=== PATIENT | male | born 1970 | race Caucasian/White ===

== ENCOUNTER → 2017-04-14 | Outpatient (CLI) | payer OTHER ==
--- NOTE | 2017-04-14 16:34 | XR ---
Bilateral shoulders HISTORY: Pain 3 views of both shoulders are submitted. No evident soft tissue abnormality. Alignment, joint spaces, bone mineralization are maintained. No f racture or dislocation. Lung apices are unremarkable. IMPRESSION: No significant abnormalities evident. Consider shoulder MRI as indicated.
== END | disposition home or self-care (01) ==
LOC: RADXRMAIN 16:05
PROVIDERS: ATTEND Nurse Practitioner
DX: M25.511 Pain in right shoulder (principal); M25.512 Pain in left shoulder

== ENCOUNTER 2018-09-25 10:55 | Emergency (ER) | payer OTHER ==
--- NOTE | 2018-09-25 11:21 | ED ---
General Adult HPI - General Chief complaint: Psychiatric Symptoms Stated complaint: Mental Health Time Seen by Provider: 09/25/18 11:14 Source: patient, RN notes reviewed Mode of arrival: ambulatory Limitations: no limitations - History of Present Illness Initial comments: Patient is a pleasant 48-year-old male presenting to the emergency department with concerns for depression. Patient does have a history of depression. Patient has been feeling more suicidal recently. Patient does have suicidal thoughts and plan. Patient denies homicidal thoughts. Patient denies any drug or alcohol use today however states he occasionally does use substances. No hallucinations. No new physical complaints. - Related Data Home Medications Medication Instructions Recorded Confirmed No Known Home Medications 09/25/18 09/25/18 Allergies Allergy/AdvReac Type Severity Reaction Status Date / Time No Known Allergies Allergy Verified 09/25/18 11:23 Review of Systems ROS Statement: Those systems with pertinent positive or pertinent negative responses have been documented in the HPI. ROS Other: All systems not noted in ROS Statement are negative. Constitutional: Denies: fever Eyes: Denies: eye pain ENT: Denies: ear pain Respiratory: Denies: cough Cardiovascular: Denies: chest pain Endocrine: Denies: fatigue Gastrointestinal: Denies: abdominal pain Psychiatric: Reports: depression, suicidal thoughts. Denies: auditory hallucinations, visual hallucinations, homicidal thoughts Past Medical History Past Medical History: No Reported History History of Any Multi-Drug Resistant Organisms: None Reported Past Surgical History: No Surgical Hx Reported Past Psychological History: Anxiety, Depression, PTSD Smoking Status: Current every day smoker Past Alcohol Use History: Daily Past Drug Use History: Cocaine, Marijuana General Exam Limitations: no limitations General appearance: alert, in no apparent distress Head exam: Present: atraumatic Eye exam: Present: normal appearance Neck exam: Present: normal inspection Respiratory exam: Present: normal lung sounds bilaterally Cardiovascular Exam: Present: regular rate, normal rhythm GI/Abdominal exam: Present: soft. Absent: tenderness Extremities exam: Present: normal inspection Neurological exam: Present: alert Psychiatric exam: Present: flat affect Skin exam: Present: normal color Course Vital Signs 09/25/18 10:57 Temperature 97.7 F Pulse Rate 76 Respiratory 18 Rate Blood Pressure 134/87 O2 Sat by Pulse 98 Oximetry Medical Decision Making - Medical Decision Making Patient seen by mental health services who does recommend discharge and follow- up. Patient has an appointment this week. Patient reevaluated by myself. Patient agrees to keep his appointment. Patient denies suicidal ideation and does contract for safety. - Lab Data Lab Results 09/25/18 Range/Units 11:08 Urine Opiates Screen Not Detected (NotDetected) Ur Oxycodone Screen Not Detected (NotDetected) Urine Methadone Screen Not Detected (NotDetected) Ur Propoxyphene Screen Not Detected (NotDetected) Ur Barbiturates Screen Not Detected (NotDetected) U Tricyclic Antidepress Not Detected (NotDetected) Ur Phencyclidine Scrn Not Detected (NotDetected) Ur Amphetamines Screen Not Detected (NotDetected) U Methamphetamines Scrn Not Detected (NotDetected) U Benzodiazepines Scrn Not Detected (NotDetected) Urine Cocaine Screen Detected H (NotDetected) U Marijuana (THC) Screen Not Detected (NotDetected) Disposition Clinical Impression: Depression Disposition: HOME SELF-CARE Condition: Stable Instructions (If sedation given, give patient instructions): Depression (ED) Additional Instructions: Please follow-up with [facility] this week as planned. Please follow-up with primary care physician this week. Return for thoughts of self-harm, worsening symptoms or other concerns. Is patient prescribed a controlled substance at d/c from ED?: No Referrals: Michael Leo MD [REFERRING] - 1-2 days Time of Disposition: 15:05
[2018-09-25 11:52] LABS: Cocaine Screen,Urine Detected (NotDetected); Phencyclidine Screen,Urine Not Detected (NotDetected); Urn Cannabinoid Scrn Not Detected (NotDetected)
[2018-09-25 11:53] LABS: Amphetamine Screen,Urine Not Detected (NotDetected); Barbiturate Screen,Urine Not Detected (NotDetected); Benzodiazepines Screen,Urine Not Detected (NotDetected); Methadone Screen, Urine Not Detected (NotDetected); Opiate Screen,Urine Not Detected (NotDetected); Oxycodone Screen, Urine Not Detected (NotDetected); Tricyclic Antidepressant,Urine Not Detected (NotDetected)
[2018-09-25 15:42] VITALS: BP 136/81; PULSE 78; RESP 16; TEMP 97.9
== END 2018-09-25 15:41 | disposition home or self-care (01) ==
LOC: EC 10:55
DX: F32.9 Major depressive disorder, single episode, unspecified (principal); F17.200 Nicotine dependence, unspecified, uncomplicated
CPT/HCPCS: 80306; 82075; 99285

== ENCOUNTER 2019-11-29 15:14 | Inpatient (IN) | payer MEDICAID, OTHER ==
--- NOTE | 2019-11-29 15:39 | ED ---
General Adult HPI - General Chief complaint: Psychiatric Symptoms Stated complaint: panic attack/mental health Time Seen by Provider: 11/29/19 15:27 Source: patient, RN notes reviewed, old records reviewed Mode of arrival: ambulatory Limitations: no limitations - History of Present Illness Initial comments: 49-year-old male presenting for mental health evaluation. Known history of substance abuse, and bipolar depression. Patient is having both auditory and visual hallucination. He admits to both alcohol and cocaine abuse. He's been off his medications for several months. He was urged to come to the emergency department [facility]. He is anxious, and delusional at the time my examination. - Related Data Home Medications Medication Instructions Recorded Confirmed No Known Home Medications 09/25/18 09/25/18 Allergies Allergy/AdvReac Type Severity Reaction Status Date / Time No Known Allergies Allergy Verified 11/29/19 15:17 Review of Systems ROS Statement: Those systems with pertinent positive or pertinent negative responses have been documented in the HPI. ROS Other: All systems not noted in ROS Statement are negative. Past Medical History Past Medical History: No Reported History History of Any Multi-Drug Resistant Organisms: None Reported Past Surgical History: No Surgical Hx Reported Past Psychological History: Anxiety, Depression, PTSD Smoking Status: Current every day smoker Past Alcohol Use History: Daily, Heavy Past Drug Use History: Cocaine, Marijuana General Exam Limitations: no limitations General appearance: alert, in no apparent distress, anxious Head exam: Present: atraumatic, normocephalic Eye exam: Present: normal appearance, PERRL, EOMI ENT exam: Present: normal exam Neck exam: Present: normal inspection. Absent: tenderness, meningismus Respiratory exam: Present: normal lung sounds bilaterally. Absent: respiratory distress, wheezes Cardiovascular Exam: Present: regular rate, normal rhythm GI/Abdominal exam: Present: soft. Absent: distended, tenderness, guarding Neurological exam: Present: alert Psychiatric exam: Present: agitated, anxious, suicidal ideation Skin exam: Present: warm, dry, intact. Absent: cyanosis, diaphoretic Course Vital Signs 11/29/19 15:17 Temperature 98.8 F Pulse Rate 129 H Respiratory 18 Rate Blood Pressure 130/79 O2 Sat by Pulse 98 Oximetry Medical Decision Making - Medical Decision Making 49-year-old male with delusions, paranoia, suicidal ideation. Patient medically cleared and evaluated by EPS, will be admitted to this institution for further psychiatric evaluation and treatment. I did complete a clinical certification on this patient. Disposition Clinical Impression: Acute psychosis, Suicidal ideation Disposition: ADMITTED IP TO THIS [facility] Condition: Stable Is patient prescribed a controlled substance at d/c from ED?: No Referrals: [facility] [Primary Care Provider] - 1-2 days Decision to Admit Reason: Admit from EC Decision Date: 11/29/19 Decision Time: 19:31
[2019-11-29] MEDS ORDERED: ACETAMINOPHEN TAB 325 MG TAB PO PRN (20:59)
[2019-11-29] MEDS ORDERED: MAGNESIUM HYDROXIDE 2,400 MG/10 ML CUP PO PRN (20:59)
[2019-11-29] MEDS ORDERED: LORazepam 1 MG TAB PO PRN (20:59)
[2019-11-29] MEDS ORDERED: ZIPRASIDONE 20 MG VIAL IM PRN (20:59)
[2019-11-30] MEDS: MAG HYDROX/AL HYDROX/SIMETH 30 ML CUP PO PRN (07:52)
--- NOTE | 2019-11-30 13:08 | P.HP ---
Psychiatric H&P - . H&P Date: 11/30/19 History & Physical: Allergies Allergy/AdvReac Type Severity Reaction Status Date / Time No Known Allergies Allergy Verified 11/29/19 19:45 Vital Signs Temp 98.7 F 11/29/19 20:58 Pulse 115 H 11/30/19 07:51 Resp 18 11/29/19 21:43 BP 125/73 11/30/19 07:51 Pulse Ox 98 11/29/19 21:43 Intake & Output 11/29/19 11/30/19 11/30/19 18:59 06:59 18:59 Weight 70.307 kg 68.1 kg 11/30/19 11:31 IDENTIFYING DATA: Patient is a 49-year-old male with significant history of substance abuse, bipolar disorder, and depression who was admitted involuntarily for psychosis and suicidal ideation. HPI: Patient presented to the hospital accompanied by his counselor Dk from [facility]. Patient reports that he was feeling unsafe at home. Patient endorses significant paranoia, stating that he feels like he is constantly under surveillance and that his house is bugged. He reports noting Granda flying around his home. He also believes that he has been set up by an undercover officer. He reports concern that there are cameras in his lights at home. He states that the police and his neighbors are investigating him for illegal activity due to his past criminal history and substance use. He expresses that he was yelling as loud as he can in his home to "give them something to be scared about." In regards to mood, he reports significant mood lability and fluctuation. He reports some irritability. He states that his sleep has been irregular. He reports 2-5 hours of sleep per night. He is currently not endorsing any impulsivity, grandiosity, or increased goal-directed activity. He does not report any significant symptoms of depression at this time. He is not reporting any suicidal or homicidal ideation or intention. 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 In regards to psychotic symptoms, patient endorses auditory and visual disturbances. He reports that he constantly hears a "buzzing" or "humming" coming from electronics and that electronics "bother me." He states that no one else has noticed the drones flying around his home and he describes them as being with green lights Patient admits to significant substance use. Patient reports he smokes marijuana 2-3 times per week. He reports drinking 4-6 drinks 5-7 days per week. He reports a history of alcohol withdrawal but denies any delirium tremens or seizure. He does endorse significant cocaine use. He states his last use of crack cocaine was 3 nights ago and that he has been using on and off for the past couple of weeks. PAST PSYCHIATRIC HISTORY: Patient states that he is currently open with [facility] and his counselor is Dk. He reports previous medication trials of Prozac, Zoloft, trazodone, Seroquel and is currently on Abilify and lithium prescribed by his outpatient psychiatrist Dr. Pastrana. He reports 1 previous psychiatric hospitalization in 2013 after attempting suicide. PMH:denies ALLERGIES: as per EMR CHEMICAL DEPENDENCY HISTORY: as per HPI FAMILY PSYCHIATRIC/SUBSTANCE USE HISTORY: Brothermajor depression/completed suicide SOCIAL HISTORY: Patient [place] but is supported financially by his mom and dad and is also receiving unemployment from the [employer]. He has a 31-year-old son and a 30-year-old daughter. 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 MENTAL STATUS EXAM: General Appearance: Patient appears to be stated age is alert, directable, and attempts to cooperate. Patient appears to have poor hygiene and grooming. Behavior: Patient is seated and appears to have elevated psychomotor activity and is constantly fidgeting with his glasses. Speech: Patient's speech is somewhat fast but is interruptible. Mood/Affect: Patient reports their mood is anxious/scared, affect is congruent and intense at times Suicidality/Homicidality: Patient denies having any homicidal ideation intent or plan. Denies any suicidal ideations intent or plan Perceptions: Patient reports some auditory disturbances such as "buzzing and humming" from electronics." Though content/process: Paranoia is evident. Thought process is linear and goal-directed. Memory and concentration: AOX3, grossly intact for the purposes of this session. Can spell "WORLD" backwards Judgment and insight: poor STRENGTHS/WEAKNESSES: strength is that patient is resilient. Weakness is that patient has poor judgment and is impulsive and engages in significant substance use. INTELLECT: average IMPRESSIONS: Psychosis, unspecified Depressive disorder, unspecified Cocaine use disorder Alcohol use disorder Cannabis use disorder PLAN: -Patient is admitted under involuntary status to [facility] for stabilization of psychiatric symptoms and safety. A second certification was completed and along with petition will be filed for court. -Medications : Will increase Abilify to 10 mg by mouth daily to address psychosis/mood lability. Will titrate pending patient's response to medication. Continue lithium 300 mg by mouth daily for mood stabilization. -Order lithium level, TSH with reflex T4, CMP -Ativan and Geodon PRN for agitation/aggression -CIWA protocol with Ativan PRN for ETOH withdrawal -Patient was counselled on substance abuse and desired to cut back on use -Patient was informed of the risks, benefits and side effects of the medication and patient verbally consented to taking the medications. Patient signed med consent form and was placed in chart. -Internal Medicine consult to perform medical evaluation and physical. -SW on board for discharge planning. Encourage patient to participate in groups to work on coping skills. 11/30/19 13:01
--- NOTE | 2019-11-30 17:13 | P.CONS ---
History of Present Illness - Reason for Consult Consult date: 11/30/19 Medical management - Chief Complaint Panic attacks/mental health - History of Present Illness 49-year-old male presenting for mental health evaluation. Known history of substance abuse, and bipolar depression. Patient is having both auditory and visual hallucination. He admits to both alcohol and cocaine abuse. He's been off his medications for several months. He was urged to come to the emergency department by [facility] for evaluation. He is anxious, and delusional Review of Systems REVIEW OF SYSTEMS: CONSTITUTIONAL: No fever, no malaise, no fatigue. HEENT: No recent visual problems or hearing problems. Denied any sore throat. CARDIOVASCULAR: No chest pain, orthopnea, PND, no palpitations, no syncope. PULMONARY: No shortness of breath, no cough, no hemoptysis. GASTROINTESTINAL: No diarrhea, no nausea, no vomiting, no abdominal pain. NEUROLOGICAL: No headaches, no weakness, no numbness. HEMATOLOGICAL: Denies any bleeding or petechiae. GENITOURINARY: Denies any burning micturition, frequency, or urgency. MUSCULOSKELETAL/RHEUMATOLOGICAL: Denies any joint pain, swelling, or any muscle pain. ENDOCRINE: Denies any polyuria or polydipsia. The rest of the 14-point review of systems is negative. Past Medical History Past Medical History: No Reported History History of Any Multi-Drug Resistant Organisms: None Reported Past Surgical History: No Surgical Hx Reported Past Psychological History: Anxiety, Depression, PTSD Smoking Status: Current every day smoker Past Alcohol Use History: Daily, Heavy Past Drug Use History: Cocaine, Marijuana Medications and Allergies Home Medications Medication Instructions Recorded Confirmed Type ARIPiprazole [Abilify] 10 mg PO DIRECTED 11/29/19 11/29/19 History Cassandra Carbonate 600 mg PO DIRECTED 11/29/19 11/29/19 History Magnesium(Unknown Dose) 1 tab PO DIRECTED 11/29/19 11/29/19 History Allergies Allergy/AdvReac Type Severity Reaction Status Date / Time No Known Allergies Allergy Verified 11/29/19 19:45 Physical Exam Vitals: Vital Signs Temp Pulse Pulse Pulse Resp BP BP 11/30/19 07:51 115 H 125/73 11/29/19 21:43 115 H 18 11/29/19 20:58 98.7 F 92 18 131/77 11/29/19 15:17 98.8 F 129 H 18 130/79 BP Pulse Ox 11/30/19 07:51 11/29/19 21:43 122/85 98 11/29/19 20:58 98 11/29/19 15:17 98 Intake and Output 11/29/19 11/30/19 11/30/19 22:59 06:59 14:59 Other: Weight 68.1 kg - Constitutional General appearance: Present: average body habitus, cooperative, no acute distress - EENT Eyes: Present: anicteric sclerae, EOMI, PERRLA, normal appearance ENT: Present: hearing grossly normal, normal oropharynx Ears: bilateral: normal - Neck Neck: Present: normal ROM. Absent: lymphadenopathy, rigidity, thyromegaly Carotids: negative: bruit present Thyroid: bilateral: normal size, negative: enlarged, nodule - Respiratory Respiratory: bilateral: CTA, negative: rales, rhonchi, wheezing - Cardiovascular Rhythm: regular Heart sounds: normal: S1, S2 Abnormal Heart Sounds: Absent: systolic murmur, diastolic murmur - Gastrointestinal General gastrointestinal: Present: normal bowel sounds, soft. Absent: distended, organomegaly, tenderness - Genitourinary Genitourinary Comment(s): deferred - Integumentary Integumentary: Present: normal turgor. Absent: jaundiced, rash, ulcer - Neurologic Neurologic: Present: CNII-XII intact. Absent: focal deficits - Musculoskeletal Musculoskeletal: Present: gait normal, strength equal bilaterally - Psychiatric Psychiatric: Present: A&O x's 3, appropriate affect, intact judgment & insight Assessment and Plan Assessment: 1. Suicidal ideation/psychosis 2. History of substance abuse 3. Bipolar disorder 4. DJD Psych in process of adjusting medications; Ativan and Geodon ordered for agitation as needed CIWA protocol with Ativan for possible EtOH withdrawal Recommend Tylenol 650 mg every 4-6 hours when necessary for multiple joint pains
[2019-11-30] MEDS: ARIPiprazole 5 MG TAB PO SCH (20:46)
[2019-11-30] MEDS: LITHIUM CARBONATE 300 MG CAP PO SCH (20:46)
[2019-11-30] MEDS: ARIPiprazole 10 MG TAB PO SCH (20:46)
[2019-12-01] MEDS ORDERED: NICOTINE 21MG/24HR PATCH TRANSDERM SCH (09:00)
[2019-12-01] MEDS: NICOTINE 21MG/24HR PATCH TRANSDERM SCH (11:32)
--- NOTE | 2019-12-01 16:41 | P.PN ---
Progress Note - Text Progress Note Date: 12/01/19 Subjective: Patient was seen today as a cross coverage for Dr. Mejia. The patient was evaluated, chart reviewed, case discussed with the treatment team. Patient reports good sleep last night for at least 6 hours, and appetite was reported as "fair ". Patient has not been going to groups and other unit activities. The patient is compliant with his medications and denies any adverse reactions. Patient reports his depression is better today, and minimizes feeling hopeless. Denies feeling suicidal or homicidal. Denies any hallucinations. No manic symptoms reported or noticed. No report of physical symptoms. Objective: Vitals has been reviewed. Mental status examination; Appearance: The patient appears stated age, adequately groomed and dressed, no specific features. Gait/posture: Normal gait, Normal arm swinging: No abnormal movements. Attitude and behavior: engaged, cooperative, fair eye contact. Motor activity: Normal psychomotor activity Speech: Normal rate, tone. Mood: Depressed, Anxious Affect: Constricted Thought form: goal-directed, linear, coherent. Thought content: Non-delusional, sometimes feeling hopeless, denies suicidal thoughts, denies homicidal thoughts, denies intentions or plans. Perception: Denies any auditory or visual hallucinations Attention: No impairment. Orientation: Patient patient was fully oriented to time place person and situation. Insight: Patient has fair insight about his psychiatric disorder. Judgment: Patient has fair judgment about his psychiatric treatment. Assessment: Unspecified psychotic disorder. Depressive disorder, unspecified. Cocaine use disorder. Alcohol use disorder. Cannabis use disorder. Plan: Continue inpatient level of care due to need for further stabilization Precautions: Continue 15 minutes check for safety. Consider medical consultation if any acute medical issues arise. Provide the patient individual, group therapy, substance use disorder counseling to give better insight and learn coping skills. Medications: Continue Abilify 15 mg daily for mood stabilization and psychotic symptoms. [place] 300 mg daily for mood stabilization. Continue monitoring alcohol withdrawal. Continue as needed medications for psychiatric emergencies including psychosis, agitation and anxiety. Continue non-psychiatric medications for medical conditions as recommended by the medical team. Labs: [place] level, TSH, and CMP to be ordered on Tuesday Discharge patient to OUTPATIENT services upon a stabilization
[2019-12-01] MEDS: ARIPiprazole 5 MG TAB PO SCH (20:32)
[2019-12-01] MEDS: ARIPiprazole 10 MG TAB PO SCH (20:32)
[2019-12-01] MEDS: LITHIUM CARBONATE 300 MG CAP PO SCH (20:32)
[2019-12-02] MEDS: NICOTINE 21MG/24HR PATCH TRANSDERM SCH (08:31)
--- NOTE | 2019-12-02 14:04 | P.PN ---
Subjective Progress Note Date: 12/02/19 Principal diagnosis: Subjective: Patient was seen today as a cross coverage for Dr. Mejia. The patient was evaluated, chart reviewed, case discussed with the treatment team. Patient continues to report good sleep and fair appetite. He is not attending groups, but he is taking his psychiatric medications with no side effects reported. He denies any depression symptoms today, and he reports his anxiety is much better and manageable. Denies any manic or psychotic symptoms including hallucinations, paranoid ideation, or delusions. Denies any mood swings, irritability, or homicidal ideation. Objective: Vitals has been reviewed. Mental status examination; Appearance: The patient appears stated age, adequately groomed and dressed, no specific features. Gait/posture: Normal gait, Normal arm swinging: No abnormal movements. Attitude and behavior: engaged, cooperative, fair eye contact. Motor activity: Normal psychomotor activity Speech: Normal rate, tone. Mood: "Fine" Affect: Constricted Thought form: goal-directed, linear, coherent. Thought content: Non-delusional, denies feeling hopeless, denies suicidal thoughts, denies homicidal thoughts, denies intentions or plans. Perception: Denies any auditory or visual hallucinations Attention: No impairment. Orientation: Patient patient was fully oriented to time place person and situation. Insight: Patient has fair insight about his psychiatric disorder. Judgment: Patient has fair judgment about his psychiatric treatment. Assessment: Unspecified psychotic disorder. Depressive disorder, unspecified. Cocaine use disorder. Alcohol use disorder. Cannabis use disorder. Plan: Continue inpatient level of care due to need for further stabilization Precautions: Continue 15 minutes check for safety. Consider medical consultation if any acute medical issues arise. Provide the patient individual, group therapy, substance use disorder counseling to give better insight and learn coping skills. Medications: Continue Abilify 15 mg daily for mood stabilization and psychotic symptoms. [place] 300 mg daily for mood stabilization. Continue monitoring alcohol withdrawal. Continue as needed medications for psychiatric emergencies including psychosis, agitation and anxiety. Continue non-psychiatric medications for medical conditions as recommended by the medical team. Labs: [place] level, TSH, and CMP to be ordered on Tuesday Discharge patient to OUTPATIENT services upon a stabilization Objective - Vital Signs Vital signs: Vital Signs Temp 96.4 F L 12/02/19 07:01 Pulse 106 H 12/02/19 08:33 Resp 16 12/02/19 07:01 BP 120/86 12/02/19 08:33 Pulse Ox 95 12/01/19 08:35 Intake & Output 12/01/19 12/02/19 12/02/19 18:59 06:59 18:59 Weight 71 kg
[2019-12-02] MEDS: MAG HYDROX/AL HYDROX/SIMETH 30 ML CUP PO PRN (16:49)
[2019-12-02] MEDS: ARIPiprazole 5 MG TAB PO SCH (20:09)
[2019-12-02] MEDS: LITHIUM CARBONATE 300 MG CAP PO SCH (20:09)
[2019-12-02] MEDS: ARIPiprazole 10 MG TAB PO SCH (20:09)
--- NOTE | 2019-12-03 09:32 | P.PN ---
Progress Note - Text Progress Note Date: 12/03/19 Interval History: Patient was seen lying in bed and was directable and agreeable to speak with production underwriter in the office. Patient reports that he is feeling much better. He reports that his depression as 1 out of 10 in severity and his anxiety 2 out of 10 in severity with 10 being very severe. He reports that he has been doing well over the weekend and feels like his mood has become more stable. He reports sleeping 6-8 hours denies any issues with appetite.. At this time p atient denies any suicidal or homical ideations, intent or plan. Patient denies any auditory, visual hallucinations and denies any paranoia or delusions. Patients versus increased insight and reports that he has to decrease his substance use as it contributes to his paranoia. Patient denies any side effects from the medications and has been compliant with meds. Patient reports that he was initially refusing to have his blood checked due to being uncertain where the blood was going to be taking and used for. He is agreeable at this time. Mental Status Exam: General Appearance: [Patient appears to be stated age is alert, directable, and cooperative.] Behavior: [Patient is calmly seated without any agitated behavior.] Speech: Patient's speech is fluent and nonpressured. Mood/Affect: Mood is improving mildly, affect is congruent and constricted. Suicidality/Homicidality: Patient denies having any suicidal or homicidal ideation intent or plan. Perceptions: Patient denies any visual hallucinations [and denies any auditory hallucinations] Though content/process: [There is no evidence of any delusional thought content and thought process is linear and goal-directed.] Memory and concentration: AOX3, grossly intact for the purposes of this session Judgment and insight: Improving mildly Assessment Unspecified psychotic disorder Depressive disorder, unspecified Cocaine use disorder Alcohol use disorder next lying cannabis use disorder Plan: -Patient continues to meet criteria for inpatient psychiatric admission for symptom stabilization and safety. -Medications: Continue Abilify 50 mg for mood stabilization and psychotic symptoms Continue lithium 300 mg daily for mood stabilization -CMP, TSH, and lithium level were ordered today and patient was informed and is agreeable. -When necessary Ativan and Geodon for agitation/aggression. -NRT - [nicotine patch] -SW on board for discharge planning. Encouraged the patient to participate in milieu. Discharge patient to outpatient services upon stabilization.
[2019-12-03] MEDS: NICOTINE 21MG/24HR PATCH TRANSDERM SCH ×2 (09:51→13:05)
[2019-12-03] MEDS: ARIPiprazole 5 MG TAB PO SCH (20:16)
[2019-12-03] MEDS: LITHIUM CARBONATE 300 MG CAP PO SCH (20:16)
[2019-12-03] MEDS: ARIPiprazole 10 MG TAB PO SCH (20:16)
[2019-12-04] MEDS: NICOTINE 21MG/24HR PATCH TRANSDERM SCH (10:22)
[2019-12-04 10:25] VITALS: BP 111/79; PULSE 109; RESP 18
--- NOTE | 2019-12-04 11:35 | P.DS ---
Providers Date of admission: 11/29/19 20:42 Admission HPI: IDENTIFYING DATA: Patient is a 49-year-old male with significant history of substance abuse, bipolar disorder, and depression who was admitted involuntarily for psychosis and suicidal ideation. HPI: Patient presented to the hospital accompanied by his counselor Dk from [facility]. Patient reports that he was feeling unsafe at home. Patient endorses significant paranoia, stating that he feels like he is constantly under surveillance and that his house is bugged. He reports noting Granda flying around his home. He also believes that he has been set up by an undercover officer. He reports concern that there are cameras in his lights at home. He states that the police and his neighbors are investigating him for illegal activity due to his past criminal history and substance use. He expresses that he was yelling as loud as he can in his home to "give them something to be scared about." In regards to mood, he reports significant mood lability and fluctuation. He reports some irritability. He states that his sleep has been irregular. He reports 2-5 hours of sleep per night. He is currently not endorsing any impulsivity, grandiosity, or increased goal-directed activity. He does not report any significant symptoms of depression at this time. He is not reporting any suicidal or homicidal ideation or intention. In regards to his comments regarding suicide by type copy examiner, patient reports that he was not intending to do so. In regards to psychotic symptoms, patient endorses auditory and visual disturbances. He reports that he constantly hears a "buzzing" or "humming" coming from electronics and that electronics "bother me." He states that no one else has noticed the drones flying around his home and he describes them as being with green lights Patient admits to significant substance use. Patient reports he smokes marijuana 2-3 times per week. He reports drinking 4-6 drinks 5-7 days per week. He reports a history of alcohol withdrawal but denies any delirium tremens or seizure. He does endorse significant cocaine use. He states his last use of crack cocaine was 3 nights ago and that he has been using on and off for the past couple of weeks. Hospital course: Upon admission to the unit patient was initially irritated, paranoid, with elevated psychomotor activity. Patient was however directable and agreeable to commence treatment. Patient got along well with other patients on the unit and followed unit protocol. Patient was compliant with the medications and denied any side effects throughout hospital course. Patient was restarted on Abilify and his home medication of lithium. Patient spoke of his stressors and engaged in therapy both group and individual. Patient was also seen by medical team for history and physical exam. Abilify was gradually titrated to a final dose of 15 mg. Patient's psychomotor activity became normal and he was less hypervigilant and less paranoid as the hospital stay continued. Throughout the course of the hospitalization patient gradually improved with regards to mood, anxiety, sleep and became future oriented with improved insight and judgment. On the day of discharge patient denied any suicidal or homicidal ideations intent or plan denied any auditory or visual hallucinations. Patient endorsed wanting to live for his health and family. The patient denied any access to guns or weapons. Patient denied any paranoia and did not endorse any delusions. Patient does have a significant history of substance abuse however was counseled on abstaining from all substances including alcohol, marijuana, and crack cocaine. Patient was offered however declined inpatient substance-abuse rehab. Patient was also counseled on the medications and need for regular compliance and was encouraged to follow-up with their outpatient appointment for mental health and also for primary care. Mental status exam: General Appearance: Patient appears to be stated age is alert, pleasant, and cooperative. Patient is in no acute distress and has fair hygiene and grooming Behavior: Patient is calmly seated without any agitated behavior. Speech: Patient's speech is fluent and nonpressured. Mood/Affect: Patient reports their mood is "doing great", affect is congruent and euthymic. Suicidality/Homicidality: Patient denies having any suicidal or homicidal ideation intent or plan. Perceptions: Patient denies any auditory or visual hallucinations. Though content/process: There is no evidence of any delusional thought content and thought process is linear and goal-directed. more future oriented Memory and concentration: AOX3, grossly intact for the purposes of this session. Can spell "WORLD" backwards correctly. Judgment and insight: Improved with guarded prognosis Impression: Psychosis, unspecified likely secondary to crack cocaine use Depressive disorder, unspecified - likely secondary to crack cocaine withdrawal Bipolar disorder, by history Cocaine use disorder Alcohol use disorder Cannabis use disorder Plan: -Continue with discharge today as patient has improved and stabilized psychiatrically and is not currently an imminent threat to himself and/or others. Patient will remain at chronically elevated risk for harm to self and/or others due to his impulsivity and polysubstance abuse. -Continue medications: Abilify 15 mg by mouth daily for psychosis and mood stabilization Ferdinand 300 mg by mouth daily for mood stabilization -Patient was counseled on the need for medication compliance and appropriate follow-up at mental health and also primary care for medical issues. Patient verbalized understanding and agreed. -Patient reports that he has had his lithium level recently checked by his outpatient provider. He reports that he is having his labs such as his thyroid function and kidney function being monitored in the outpatient setting. -Social work to arrange for and conduct family meeting to ensure safety upon discharge and answer any questions/concerns. Social work also to arrange for patients follow up appointments with [facility] for psychiatric care along with follow up with primary care provider. -Patient counseled on abstaining from recreational drugs and marijuana and alcohol. Was informed/educated on the adverse effects on their physical and mental health. Patient verbally agreed and understood. Patient was offered substance abuse treatment however declined at this time. -Patient was instructed to return to the hospital or seek immediate medical care if their psychiatric or medical symptoms do worsen or reoccur. -Psychoeducation and supportive therapy provided to patient. Risks and benefits of pharmacological treatment versus the risks and benefits of nontreatment weight and discussed. Informed consent discussion held. Common side effects of psychotropics discussed such as, but not limited to headache, GI disturbance, sexual dysfunction, movement disorders, sedation, and orthostatic hypotension. Life threatening and blackbox warnings of prescribed medications also discussed. Potential risks of operating a vehicle or heavy machinery discussed with patient at length. Advised on importance of compliance and a reliable and responsible manner. Patient advised to review FDA consumer labeling of all medications prior to taking. Patient verbalized understanding of potential risks, and agrees with current treatment plan. Patient advised to medically contact physician/emergency personnel if any acute changes in condition occur. Vital Signs Last 24 Hours 12/04/19 10:24 Temperature 98.4 F Pulse Rate [ 109 H Left] Respiratory 18 Rate Blood Pressure 111/79 [Left Arm] Allergies Allergy/AdvReac Type Severity Reaction Status Date / Time No Known Allergies Allergy Verified 11/29/19 19:45 Attending physician: Thiago Mejia MD Consults: 11/29/19 20:59 Consult Physician Routine Consulting Provider: [facility] Hospitalists Consult Reason/Comments: Medical Management Do you want consulting provider notified?: Yes [facility] Patient Condition at Discharge: Stable Plan - Discharge Summary New Discharge Prescriptions: New ARIPiprazole [Abilify] 15 mg PO DAILY 30 Days tablet Nicotine 21Mg/24Hr Patch [Habitrol] 1 patch TRANSDERM DAILY 14 Days patch Ferdinand Carbonate 300 mg PO HS 30 Days cap Acetaminophen Tab [Tylenol] 650 mg PO Q4HR PRN tab PRN Reason: Pain/Discomfort Discontinued Ferdinand Carbonate 600 mg PO DIRECTED ARIPiprazole [Abilify] 10 mg PO DIRECTED Magnesium(Unknown Dose) 1 tab PO DIRECTED Discharge Medication List ARIPiprazole [Abilify] 15 mg PO DAILY 30 Days tablet 12/04/19 [Rx] Acetaminophen Tab [Tylenol] 650 mg PO Q4HR PRN tab 12/04/19 [Rx] Ferdinand Carbonate 300 mg PO HS 30 Days cap 12/04/19 [Rx] Nicotine 21Mg/24Hr Patch [Habitrol] 1 patch TRANSDERM DAILY 14 Days patch 12/04/19 [Rx] [facility]Ref[facility]2 days Activity/Diet/Wound Care/Special Instructions: Activity and diet as tolerated. Avoid the use of street drugs and alcohol. Take all medications as prescribed. When you are in need of refills on your medications please contact your medical provider and/or outpatient psychiatrist to have this done. Please go to scheduled outpatient appointment for aftercare treatment. If symptoms return or become worse, call the crisis line at and/or go to the nearest emergency room for evaluation. Discharge Disposition: HOME SELF-CARE Pending Studies Pending Results: TSH, lithium, and CMP were ordered but were not drawn prior to this discharge. Patient was informed to follow-up with his outpatient provider for appropriate monitoring.
[2019-12-04 14:40] VITALS: TEMP 98.3
== END 2019-12-04 14:30 | disposition home or self-care (01) | DRG 897 ==
LOC: EC 15:14 → 3MHU 20:42
PROVIDERS: ADMIT Psychiatry & Neurology Psychiatry; ATTEND Psychiatry & Neurology Psychiatry
DX: F14.250 Cocaine dependence with cocaine-induced psychotic disorder with delusions (principal); R45.851 Suicidal ideations; F31.30 Bipolar disorder, current episode depressed, mild or moderate severity, unspecified; F10.10 Alcohol abuse, uncomplicated; F12.10 Cannabis abuse, uncomplicated; F41.0 Panic disorder [episodic paroxysmal anxiety]; F43.10 Post-traumatic stress disorder, unspecified; R45.87 Impulsiveness; M19.90 Unspecified osteoarthritis, unspecified site; F17.200 Nicotine dependence, unspecified, uncomplicated; Z71.6 Tobacco abuse counseling; Z71.51 Drug abuse counseling and surveillance of drug abuser; Z79.899 Other long term (current) drug therapy; Z71.41 Alcohol abuse counseling and surveillance of alcoholic; Z81.8 Family history of other mental and behavioral disorders
CPT/HCPCS: 82075; 99285

== ENCOUNTER → 2020-12-23 | Outpatient (CLI) | payer OTHER ==
--- NOTE | 2020-12-23 11:51 | XR ---
EXAM TYPE: LUMBAR SPINE X RAY SERIES COMPARISON: NONE HISTORY: Pain TECHNIQUE: 4 views are submitted. FINDINGS: Alignment is anatomic. The pedicles are intact. The transverse processes are intact. There is no s pondylolisthesis. Severe degenerative disc disease L5-S1 with facet arthropathy foraminal encroachme nt suspected. IMPRESSION: 1. Severe degenerative disc disease L5-S1 with facet arthropathy and foraminal encroachment recommend follow-up MRI. 2. Mild superior endplate compression fracture L2 likely chronic.
== END | disposition home or self-care (01) ==
LOC: RADXRMAIN 09:37
PROVIDERS: ATTEND Family Medicine
DX: M48.56XA Collapsed vertebra, not elsewhere classified, lumbar region, initial encounter for fracture (principal); M51.37 Other intervertebral disc degeneration, lumbosacral region; M47.816 Spondylosis without myelopathy or radiculopathy, lumbar region
CPT/HCPCS: 72110

== ENCOUNTER 2023-06-18 23:22 | Inpatient (IN) | payer MEDICAID, OTHER ==
--- NOTE | 2023-06-18 23:50 | ED ---
Psych HPI - General Chief Complaint: Psychiatric Symptoms Stated Complaint: Mental health Time Seen by Provider: 06/18/23 23:30 Source: patient, police Mode of arrival: ambulatory Limitations: altered mental status - History of Present Illness Initial Comments: This patient is a 53-year-old man who is brought to have evaluation after police were called to the place of residence. The patient reportedly lives with parents and he was making paranoid and delusional statements. He reportedly had broken some objects at the home. He reportedly was stating that people were "coming to get them." I interview the patient, he is having difficult time with following the history and physical. He is complaining of having an infestation with some sort of parasite. MD Complaint: other -: hour(s) Associated Psychiatric Symptoms: racing thoughts, delusions History of same: Yes Quality: getting worse Improves With: none Worsens With: none Associated Symptoms: denies other symptoms - Related Data Home Medications Medication Instructions Recorded Confirmed Ergocalciferol [Vitamin D2 (1250 1,250 mcg PO Q7D 06/20/23 06/20/23 Mcg = 42077 Iu)] Omeprazole [PriLOSEC] 40 mg PO DAILY 06/20/23 06/20/23 Previous Rx's Medication Instructions Recorded Cholestyramine (with Sugar) 4 gm PO BID@0900,1700 7 Days #14 06/27/23 [Questran Packet] packet FLUoxetine HCL [PROzac] 20 mg PO DAILY 30 Days #30 cap 06/27/23 Fluticasone Nasal [employer] [Flonase 2 spray EA NOSTRIL BID PRN 7 Days 06/27/23 Nasal [employer]] #1 unit Loratadine [Claritin] 10 mg PO DAILY 30 Days #30 tab 06/27/23 OLANZapine [ZyPREXA] 7.5 mg PO HS 30 Days #30 tab 06/27/23 Triamcinolone 0.1% Ointment 1 applic TOPICAL BID 7 Days #1 each 06/27/23 [Kenalog 0.1% Ointment] Allergies Allergy/AdvReac Type Severity Reaction Status Date / Time No Known Allergies Allergy Verified 06/20/23 10:46 Review of Systems ROS Statement: Those systems with pertinent positive or pertinent negative responses have been documented in the HPI. ROS Other: All systems not noted in ROS Statement are negative. Limitations: ROS unobtainable due to patients medical condition Past Medical History Past Medical History: No Reported History History of Any Multi-Drug Resistant Organisms: None Reported Past Surgical History: No Surgical Hx Reported Past Psychological History: Anxiety, Depression, PTSD Smoking Status: Current every day smoker, Vaper Past Alcohol Use History: Daily, Heavy Past Drug Use History: Cocaine, Marijuana General Exam General appearance: alert, other (patient appears to be actively psychotic/manic) Head exam: Present: atraumatic, normocephalic Eye exam: Present: PERRL. Absent: scleral icterus, conjunctival injection, nystagmus Pupils: Present: mydriatic ENT exam: Present: mucous membranes dry Neck exam: Present: normal inspection, full ROM. Absent: tenderness Respiratory exam: Present: normal lung sounds bilaterally, respiratory distress (there is mild tachypnea however patient does not appear to be dyspneic and is speaking in full paragraphs). Absent: wheezes, rales, rhonchi, stridor, a ccessory muscle use Cardiovascular Exam: Present: normal rhythm, tachycardia, normal heart sounds. Absent: systolic murmur, diastolic murmur, rubs, gallop GI/Abdominal exam: Present: soft. Absent: distended, tenderness, guarding, rebound, rigid, mass Extremities exam: Present: normal inspection, normal capillary refill. Absent: pedal edema, calf tenderness Back exam: Present: normal inspection. Absent: CVA tenderness (R), CVA tenderness (L), vertebral tenderness Neurological exam: Present: alert, CN II-XII intact. Absent: oriented X3, motor sensory deficit Psychiatric exam: Present: anxious, manic, other (is displaying delusional thought content and paranoid ideation). Absent: flat affect, homicidal ideation, suicidal ideation Skin exam: Present: warm, dry, normal color, other (multiple excoriations) Course Vital Signs 06/18/23 06/19/23 06/19/23 23:36 00:15 00:30 Temperature 98.1 F Pulse Rate 135 H 86 96 Respiratory 29 H 23 24 Rate Blood Pressure 169/95 120/77 106/66 O2 Sat by Pulse 96 94 L 94 L Oximetry 06/19/23 06/19/23 06/19/23 00:45 01:00 01:15 Temperature Pulse Rate 77 79 78 Respiratory 20 16 16 Rate Blood Pressure 101/61 101/59 103/61 O2 Sat by Pulse 96 99 99 Oximetry 06/19/23 06/19/23 06/19/23 03:13 04:55 05:53 Temperature Pulse Rate 67 55 L 58 L Respiratory 19 21 13 Rate Blood Pressure 93/63 94/58 88/56 O2 Sat by Pulse 98 98 99 Oximetry 06/19/23 06/19/23 06/19/23 06:04 10:15 11:46 Temperature Pulse Rate 57 L 79 53 L Respiratory 15 14 14 Rate Blood Pressure 92/61 110/68 106/66 O2 Sat by Pulse 98 99 97 Oximetry 06/19/23 06/20/23 06/20/23 21:51 00:00 09:00 Temperature 97.9 F 98.1 F Pulse Rate 60 71 78 Respiratory 18 18 18 Rate Blood Pressure 122/93 124/58 120/82 O2 Sat by Pulse 98 98 99 Oximetry 06/20/23 13:48 Temperature Pulse Rate 78 Respiratory 18 Rate Blood Pressure 120/82 O2 Sat by Pulse 99 Oximetry Procedures - Restraint - Face to Face Restraint Occurrence 1 Patient's Reaction to the Intervention: Bizarre, Aggressive, Restless, Resistive to care Patient's Medical & Behavioral Condition: Agitated, Paranoid, Manic, Visual hallucinations, Bizarre behavior Need to Continue or Terminate Restraint or Seclusion: Continue Face to Face Eval of Restraint Date: 06/18/23 Face to Face Eval of Restraint Time: 23:36 Medical Decision Making - Medical Decision Making Was pt. sent in by a medical professional or institution (, PA, SUPERVISOR OF OFFICIALS, urgent care, hospital, or halfway...) When possible be specific @ -[No] Did you speak to anyone other than the patient for history (EMS, parent, family, police, friend...)? What history was obtained from this source @ -[EMS Did you review nursing and triage notes (agree or disagree)? Why? @ -[I reviewed and agree with nursing and triage notes] Were old charts reviewed (outside hosp., previous admission, EMS record, old EKG, old radiological studies, urgent care reports/EKG's, halfway records)? Report findings @ -[No old charts were reviewed] Differential Diagnosis (chest pain, altered mental status, abdominal pain women, abdominal pain men, vaginal bleeding, weakness, fever, dyspnea, syncope, headache, dizziness, GI bleed, back pain, seizure, CVA, palpatations, mental health, musculoskeletal)? @ -[Differential Mental Health Depression, anxiety, bipolar, psychosis, schizophrenia, borderline personality, situational depression, adjustment disorder, behavioral disorder, brain tumor, malingering, substance abuse, encephalopathy, medication reaction, dementia, h ypothyroidism, degenerative neurologic disorder, lupus.... This is not meant to be all-inclusive list EKG interpreted by me (3pts min.). @ -[As above] X-rays interpreted by me (1pt min.). @ -[None done] CT interpreted by me (1pt min.). @ -[None done] U/S interpreted by me (1pt. min.). @ -[None done] What testing was considered but not performed or refused? (CT, X-rays, U/S, labs)? Why? @ -[None] What meds were considered but not given or refused? Why? @ -[None] Did you discuss the management of the patient with other professionals (professionals i.e. , PA, SUPERVISOR OF OFFICIALS, lab, RT, psych nurse, director social service, masticator, teacher, nuclear security officer, insurance case manager)? Give summary @ -Case discussed with EPS personnel and after the evaluation, the patient will be admitted to have further mental health care Was smoking cessation discussed for >3mins.? @ -[No] Was critical care preformed (if so, how long)? @ -[Yes, 30 minutes. The patient did require multiple reevaluations/reassessments to deem whether he was to be placed into restraints, whether he was to be taken out of restraints, the initial evaluation, to complete clinical certificate Were there social determinants of health that impacted care today? How? (Homelessness, low income, unemployed, alcoholism, drug addiction, transportation, low edu. Level, literacy, decrease access to med. care, detention, rehab)? @ -[No] Was there de-escalation of care discussed even if they declined (Discuss DNR or withdrawal of care, Hospice)? DNR status @ -[No] What co-morbidities impacted this encounter? (DM, HTN, Smoking, COPD, CAD, Cancer, CVA, ARF, Chemo, Hep., AIDS, mental health diagnosis, sleep apnea, morbid obesity)? @ -[Previous psychosis Was patient admitted / discharged? Hospital course, mention meds given and route, prescriptions, significant lab abnormalities, going to OR and other pertinent info. @ -[ Undiagnosed new problem with uncertain prognosis? @ -[No] Drug Therapy requiring intensive monitoring for toxicity (Heparin, Nitro, Insulin, Cardizem)? @ -[No] Were any procedures done? @ -[No] Diagnosis/symptom? @ -[Acute psychosis Acute, or Chronic, or Acute on Chronic? @ -[Acute Uncomplicated (without systemic symptoms) or Complicated (systemic symptoms)? @ -[Uncomplicated Side effects of treatment? @ -[No] Exacerbation, Progression, or Severe Exacerbation? @ -[No] Poses a threat to life or bodily function? How? (Chest pain, [place], [place], pneumonia, PE, COPD, DKA, ARF, appy, cholecystitis, CVA, Diverticulitis, Homicidal, Suicidal, threat to staff... and all critical care pts) @ -[Yes - Lab Data Result diagrams: 06/19/23 01:53 06/19/23 01:53 Lab Results 06/19/23 06/19/23 06/19/23 Range/Units 01:43 01:53 01:53 WBC 9.8 (3.8-10.6) k/uL RBC 3.78 L (4.30-5.90) m/uL Hgb 12.0 L (13.0-17.5) gm/dL Hct 35.5 L (39.0-53.0) % MCV 93.9 (80.0-100.0) fL MCH 31.8 (25.0-35.0) pg MCHC 33.9 (31.0-37.0) g/dL RDW 12.4 (11.5-15.5) % Plt Count 219 (150-450) k/uL MPV 7.6 Neutrophils % 81 % Lymphocytes % 12 % Monocytes % 5 % Eosinophils % 0 % Basophils % 0 % Neutrophils # 8.0 H (1.3-7.7) k/uL Lymphocytes # 1.2 (1.0-4.8) k/uL Monocytes # 0.5 (0-1.0) k/uL Eosinophils # 0.0 (0-0.7) k/uL Basophils # 0.0 (0-0.2) k/uL Sodium 142 (137-145) mmol/L Potassium 3.6 (3.5-5.1) mmol/L Chloride 108 H (98-107) mmol/L Carbon Dioxide 30 (22-30) mmol/L Anion Gap 4 mmol/L BUN 25 H (9-20) mg/dL Creatinine 1.12 (0.66-1.25) mg/dL Est GFR (CKD-EPI)AfAm 87 (>60 ml/min/1.73 sqM) Est GFR (CKD-EPI)NonAf 75 (>60 ml/min/1.73 sqM) Glucose 97 (74-99) mg/dL Estimated Ave Glu mg/dL 120 mg/dL Hemoglobin A1c 5.8 (<=6.0) % Calcium 8.9 (8.4-10.2) mg/dL Total Bilirubin 1.0 (0.2-1.3) mg/dL AST 90 H (17-59) U/L ALT 55 H (4-49) U/L Alkaline Phosphatase 67 (38-126) U/L Total Protein 6.2 L (6.3-8.2) g/dL Albumin 3.8 (3.5-5.0) g/dL Triglycerides (0.00-149.00) mg/dL Cholesterol (0.00-200.00) mg/dL LDL Cholesterol, Calc (0.0-131.0) mg/dL VLDL Cholesterol, Calc (5.00-40.00) mg/dL HDL Cholesterol (40.00-60.00) mg/dL Cholesterol/HDL Ratio Ratio TSH 0.317 L (0.465-4.680) mIU/L Urine Opiates Screen (NotDetected) Ur Oxycodone Screen (NotDetected) Urine Methadone Screen (NotDetected) Ur Barbiturates Screen (NotDetected) U Tricyclic Antidepress (NotDetected) Ur Phencyclidine Scrn (NotDetected) Ur Amphetamines Screen (NotDetected) U Methamphetamines Scrn (NotDetected) U Benzodiazepines Scrn (NotDetected) Urine Cocaine Screen (NotDetected) U Marijuana (THC) Screen (NotDetected) Influenza Type A (PCR) (Not Detectd) Influenza Type B (PCR) (Not Detectd) RSV (PCR) (Not Detectd) SARS-CoV-2 (PCR) (Not Detectd) 06/19/23 06/19/23 06/20/23 Range/Units 01:53 21:43 12:00 WBC (3.8-10.6) k/uL RBC (4.30-5.90) m/uL Hgb (13.0-17.5) gm/dL Hct (39.0-53.0) % MCV (80.0-100.0) fL MCH (25.0-35.0) pg MCHC (31.0-37.0) g/dL RDW (11.5-15.5) % Plt Count (150-450) k/uL MPV Neutrophils % % Lymphocytes % % Monocytes % % Eosinophils % % Basophils % % Neutrophils # (1.3-7.7) k/uL Lymphocytes # (1.0-4.8) k/uL Monocytes # (0-1.0) k/uL Eosinophils # (0-0.7) k/uL Basophils # (0-0.2) k/uL Sodium (137-145) mmol/L Potassium (3.5-5.1) mmol/L Chloride (98-107) mmol/L Carbon Dioxide (22-30) mmol/L Anion Gap mmol/L BUN (9-20) mg/dL Creatinine (0.66-1.25) mg/dL Est GFR (CKD-EPI)AfAm (>60 ml/min/1.73 sqM) Est GFR (CKD-EPI)NonAf (>60 ml/min/1.73 sqM) Glucose (74-99) mg/dL Estimated Ave Glu mg/dL mg/dL Hemoglobin A1c (<=6.0) % Calcium (8.4-10.2) mg/dL Total Bilirubin (0.2-1.3) mg/dL AST (17-59) U/L ALT (4-49) U/L Alkaline Phosphatase (38-126) U/L Total Protein (6.3-8.2) g/dL Albumin (3.5-5.0) g/dL Triglycerides 67.30 (0.00-149.00) mg/dL Cholesterol 194.00 (0.00-200.00) mg/dL LDL Cholesterol, Calc 122.3 (0.0-131.0) mg/dL VLDL Cholesterol, Calc 13.46 (5.00-40.00) mg/dL HDL Cholesterol 58.20 (40.00-60.00) mg/dL Cholesterol/HDL Ratio 3.33 Ratio TSH (0.465-4.680) mIU/L Urine Opiates Screen Not Detected (NotDetected) Ur Oxycodone Screen Not Detected (NotDetected) Urine Methadone Screen Not Detected (NotDetected) Ur Barbiturates Screen Not Detected (NotDetected) U Tricyclic Antidepress Not Detected (NotDetected) Ur Phencyclidine Scrn Not Detected (NotDetected) Ur Amphetamines Screen Not Detected (NotDetected) U Methamphetamines Scrn Not Detected (NotDetected) U Benzodiazepines Scrn Not Detected (NotDetected) Urine Cocaine Screen Detected H (NotDetected) U Marijuana (THC) Screen Detected H (NotDetected) Influenza Type A (PCR) Not Detected (Not Detectd) Influenza Type B (PCR) Not Detected (Not Detectd) RSV (PCR) Not Detected (Not Detectd) SARS-CoV-2 (PCR) Not Detected (Not Detectd) Critical Care Time Critical Care Time: Yes (30 minutes) Disposition Clinical Impression: Acute psychosis Disposition: ADMITTED IP TO THIS [facility] Condition: Good Is patient prescribed a controlled substance at d/c from ED?: No
[2023-06-18] MEDS: ZIPRASIDONE 20 MG VIAL IM STA (23:58)
[2023-06-18] MEDS: LORazepam 2 MG/ML INJ IM STA (23:58)
[2023-06-19 02:11] LABS: Basophils % (A) 0 %; Eosinophils % (A) 0 %; HCT 35.5 % (39.0-53.0); Lymphocytes # (A) 1.2 k/uL (1.0-4.8); Lymphocytes % (A) 12 %; MCH 31.8 pg (25.0-35.0); MCHC 33.9 g/dL (31.0-37.0); MCV 93.9 fL (80.0-100.0); Mean Platelet Volume 7.6; Monocytes # (A) 0.5 k/uL (0-1.0); Monocytes % (A) 5 %; Neutrophils % (A) 81 %; Platelet Count 219 k/uL (150-450); RBC 3.78 m/uL (4.30-5.90); RDW 12.4 % (11.5-15.5); WBC 9.8 k/uL (3.8-10.6)
[2023-06-19 02:24] LABS: ALT 55 U/L (4-49); AST 90 U/L (17-59); African American GFR (CKD) 87 (>60 ml/min/1.73 sqM); Albumin 3.8 g/dL (3.5-5.0); Alkaline Phosphatase 67 U/L (38-126); Anion Gap 4 mmol/L; Blood Urea Nitrogen 25 mg/dL (9-20); Calcium 8.9 mg/dL (8.4-10.2); Carbon Dioxide 30 mmol/L (22-30); Chloride 108 mmol/L (98-107); Glucose 97 mg/dL (74-99); Non-African American GFR(CKD) 75 (>60 ml/min/1.73 sqM); Potassium 3.6 mmol/L (3.5-5.1); Sodium 142 mmol/L (137-145); Total Protein 6.2 g/dL (6.3-8.2)
[2023-06-19] MEDS: SODIUM CHLORIDE 0.9% 1,000 ML IV ONE (05:52)
[2023-06-19] MEDS: LORazepam 1 MG TAB PO STA (23:00)
[2023-06-19 23:30] LABS: Amphetamine Screen,Urine Not Detected (NotDetected); Barbiturate Screen,Urine Not Detected (NotDetected); Benzodiazepines Screen,Urine Not Detected (NotDetected); Cocaine Screen,Urine Detected (NotDetected); Methadone Screen, Urine Not Detected (NotDetected); Opiate Screen,Urine Not Detected (NotDetected); Oxycodone Screen, Urine Not Detected (NotDetected); Phencyclidine Screen,Urine Not Detected (NotDetected); Tricyclic Antidepressant,Urine Not Detected (NotDetected); Urn Cannabinoid Scrn Detected (NotDetected)
[2023-06-20] MEDS: NICOTINE 14MG/24HR PATCH TRANSDERM SCH (09:08)
[2023-06-20] MEDS ORDERED: haloperidoL 5 MG TAB PO PRN (13:27)
[2023-06-20] MEDS ORDERED: MAG HYDROX/AL HYDROX/SIMETH 355 ML BOTTLE PO PRN (13:27)
[2023-06-20] MEDS ORDERED: LORazepam 1 MG TAB PO PRN (13:27)
[2023-06-20] MEDS ORDERED: LORazepam 2 MG/ML INJ IM PRN (13:27)
[2023-06-20] MEDS ORDERED: HALOPERIDOL LACTATE 5 MG/ML 1 ML VIAL IM PRN (13:27)
[2023-06-20] MEDS ORDERED: MAGNESIUM HYDROXIDE 2,400 MG/30 ML CUP PO PRN (13:27)
[2023-06-20] MEDS ORDERED: ACETAMINOPHEN TAB 325 MG TAB PO PRN (13:27)
[2023-06-20] MEDS ORDERED: QUEtiapine 100 MG TAB PO PRN (13:32)
[2023-06-20] MEDS: LORazepam 1 MG TAB PO PRN (20:40)
--- NOTE | 2023-06-20 23:19 | P.CONS ---
History of Present Illness - Reason for Consult Consult date: 06/20/23 Medical management Requesting physician: Kirill Guerra - History of Present Illness History of present illness: 53-year-old male one of our office patient for the last 2 years with past medical history of chronic depression, psychosis, possible schizophrenia, Who had chronic depressive disorders along with PTSD have substance abuse including cocaine and marijuana history of anemia along with CKD severe GERD chronic history of smoking. Patient apparently brought to the emergency department by police department arrival by ambulance was called to his residential place the mother called concerned about her son who has been having delusional and paranoia with worsening confusion and change consistent with feeling people are watching him and would not hurt him also has been having difficult time with general phobia and feeling it is something infecting him all over with viruses, bacteria and parasite causing him to be ill and sick that is causing him to have a lot more itching all over his body causing him to have an open sore spot causing more folliculitis and more rash. Was seen in the emergency department laboratory value showed low-grade anemia with hemoglobin of 12.0 normal platelet count electrolyte panel with slightly abnormal liver function test with creatinine 1.22 GFR at 75 drug screen was positive for cocaine and marijuana patient COVID- 19 influenza and RSV was negative. Was hospitalized to the psych unit with above problem. REVIEW OF SYSTEMS: CONSTITUTIONAL: Well-developed no acute respiratory distress. EYES: No icterus sclerae, no conjunctivitis. EARS, NOSE, MOUTH, THROAT, and FACE: No sore throat, lymphadenopathy, carotid bruits or deformity. RESPIRATORY: Mild shortness of breath CARDIOVASCULAR: No CP, Palpitation, PND, Orthopnea, or angina. Slight palpitation GASTROINTESTINAL: No Abd pain, Nausea or vomiting, no Diarrhea or constipation, No GI Bleed, no distention or masses. Increased heartburn indigestion. GENITOURINARY: Negative for Hematuria or UTI, no kidney stones. INTEGUMENT/BREAST: Negative for any muscular injury with mild osteoarthritis.. SKIN: Rash all over with signs of folliculitis. HEMATOLOGIC/LYMPHATIC: Negative for bleed or purpura. MUSCULOSKELTAL: Negative for Myalgia or arthralgia. NEURLOGICAL: No LOC, Sz or syncope, blurred vision dizziness or abnormality.. BEHAVIORAL/PSYCH: Delusional, confused no sedation. ENDOCRINE: Negative. PHYSICAL EXAMINATION: General Appearance: Alert, cooperative, no distress, appears stated age. Neck HEENT: Supple, no lymphadenopathy, no thyroid enlargement, no carotid bruits. Lungs: Decreased breath sound bilaterally with fine rhonchi. Chest Wall: Decreased expansion with deep inspiration no tenderness and no deformity was found on exam, no costochondral pain or discomfort. Heart: Regular rate and rhythm, S1, S2 normal, no murmur, rub or gallop. Mild tachycardia Back: Symmetric, no curvature, ROM normal, no CVA tenderness. Abdomen: Soft, non-tender, bowel sounds active all four quadrants, no masses, no organomegaly. Extremities: Extremities normal, atraumatic, no cyanosis or edema. Pulses: 2+ and symmetric. Skin: Positive scratch itching and folliculitis all over her body. Neurologic: Alert oriented with confusion. Cranial nerves II through XII intact, no motor deficit, no abnormal balance or gait. ASSESSMENT AND PLAN: _Severe depression hallucination and paranoia: Patient will be safe for him to be kept in the hospital, will be seen psych change medication Started on Haldol along with Seroquel for now and will hold his Luvox and benzodiazepine. _History of drug abuse including cocaine and marijuana patient accepted at he does marijuana almost every day. And used cocaine weekly basis. _Mild anemia: Mostly iron deficiency keep watching for any signs of bleeding. _Abnormal liver function test: Not acute allergy most likely drug abuse use. Related _Folliculitis of the body scratches skin infection can benefit from adding doxycycline 100 mg twice a day for 1 week then once a day for 2 months. Topical product such as antibiotic and steroid cream can be helpful. _Stage II chronic kidney disease: Continue hydration watch symptoms carefully. _History of smoking: Smoking cessation was addressed patient is on nicotine patch. _GERD: Remain on omeprazole 40 mg a day. _DVT prophylaxis: Early mobilization knee-high VI josee. CODE STATUS: Full code. Dr Guerra thank very much for the consult more than happy to see this gentleman along with in the hospital and being from the help to please let me Past Medical History Past Medical History: No Reported History History of Any Multi-Drug Resistant Organisms: None Reported Past Surgical History: No Surgical Hx Reported Past Psychological History: Anxiety, Depression, PTSD Smoking Status: Current every day smoker, Vaper Past Alcohol Use History: Daily, Heavy Past Drug Use History: Cocaine, Marijuana Medications and Allergies Home Medications Medication Instructions Recorded Confirmed Type Cetirizine HCl 10 mg PO DAILY 06/20/23 06/20/23 History Ergocalciferol [Vitamin D2 (1250 1,250 mcg PO Q7D 06/20/23 06/20/23 History Mcg = 04071 Iu)] Omeprazole [PriLOSEC] 40 mg PO DAILY 06/20/23 06/20/23 History Triamcinolone 0.1% Ointment 1 applic TOPICAL BID 06/20/23 06/20/23 History [Kenalog 0.1% Ointment] fluvoxaMINE MALEATE [Luvox CR] 150 mg PO DAILY 06/20/23 06/20/23 History Allergies Allergy/AdvReac Type Severity Reaction Status Date / Time No Known Allergies Allergy Verified 06/20/23 10:46 Physical Exam Vitals: Vital Signs Temp Pulse Resp BP Pulse Ox 06/20/23 13:48 78 18 120/82 99 06/20/23 09:00 98.1 F 78 18 120/82 99 06/20/23 00:00 97.9 F 71 18 124/58 98 06/19/23 21:51 60 18 122/93 98 Results CBC & Chem 7: 06/19/23 01:53 06/19/23 01:53 Labs: Abnormal Lab Results - Last 24 Hours (Table) 06/19/23 Range/Units 21:43 Urine Cocaine Screen Detected H (NotDetected) U Marijuana (THC) Screen Detected H (NotDetected)
[2023-06-21] MEDS: PANTOPRAZOLE 40 MG TABLET PO SCH (08:10)
[2023-06-21] MEDS: LORATADINE 10 MG TAB PO SCH (08:10)
[2023-06-21 08:49] LABS: Chol/HDL Ratio 3.33 Ratio; LDL Cholesterol,Calculated 122.3 mg/dL (0.0-131.0); VLDL Calculation 13.46 mg/dL (5.00-40.00)
[2023-06-21] MEDS ORDERED: NICOTINE 14MG/24HR PATCH TRANSDERM SCH (09:00)
--- NOTE | 2023-06-21 12:35 | P.HP ---
Psychiatric H&P - . H&P Date: 06/21/23 History & Physical: Allergies Allergy/AdvReac Type Severity Reaction Status Date / Time No Known Allergies Allergy Verified 06/20/23 10:46 Vital Signs Temp 97.6 F 06/20/23 14:30 Pulse 75 06/20/23 14:30 Resp 20 06/20/23 14:30 BP 108/66 06/20/23 14:30 Pulse Ox 98 06/20/23 14:30 FiO2 Intake & Output 06/20/23 06/21/23 06/21/23 18:59 06:59 18:59 Weight 63.134 kg Laboratory Last Values WBC 9.8 k/uL (3.8-10.6) 06/19/23 01:53 RBC 3.78 m/uL (4.30-5.90) L 06/19/23 01:53 Hgb 12.0 gm/dL (13.0-17.5) L 06/19/23 01:53 Hct 35.5 % (39.0-53.0) L 06/19/23 01:53 MCV 93.9 fL (80.0-100.0) 06/19/23 01:53 MCH 31.8 pg (25.0-35.0) 06/19/23 01:53 MCHC 33.9 g/dL (31.0-37.0) 06/19/23 01:53 RDW 12.4 % (11.5-15.5) 06/19/23 01:53 Plt Count 219 k/uL (150-450) 06/19/23 01:53 MPV 7.6 06/19/23 01:53 Neutrophils % 81 % 06/19/23 01:53 Lymphocytes % 12 % 06/19/23 01:53 Monocytes % 5 % 06/19/23 01:53 Eosinophils % 0 % 06/19/23 01:53 Basophils % 0 % 06/19/23 01:53 Neutrophils # 8.0 k/uL (1.3-7.7) H 06/19/23 01:53 Lymphocytes # 1.2 k/uL (1.0-4.8) 06/19/23 01:53 Monocytes # 0.5 k/uL (0-1.0) 06/19/23 01:53 Eosinophils # 0.0 k/uL (0-0.7) 06/19/23 01:53 Basophils # 0.0 k/uL (0-0.2) 06/19/23 01:53 Sodium 142 mmol/L (137-145) 06/19/23 01:53 Potassium 3.6 mmol/L (3.5-5.1) 06/19/23 01:53 Chloride 108 mmol/L (98-107) H 06/19/23 01:53 Carbon Dioxide 30 mmol/L (22-30) 06/19/23 01:53 Anion Gap 4 mmol/L 06/19/23 01:53 BUN 25 mg/dL (9-20) H 06/19/23 01:53 Creatinine 1.12 mg/dL (0.66-1.25) 06/19/23 01:53 Est GFR (CKD-EPI)AfAm 87 (>60 ml/min/1.73 sqM) 06/19/23 01:53 Est GFR (CKD-EPI)NonAf 75 (>60 ml/min/1.73 sqM) 06/19/23 01:53 Glucose 97 mg/dL (74-99) 06/19/23 01:[address] Glu mg/dL 120 mg/dL 06/19/23 01:43 Hemoglobin A1c 5.8 % (<=6.0) 06/19/23 01:43 Calcium 8.9 mg/dL (8.4-10.2) 06/19/23 01:53 Total Bilirubin 1.0 mg/dL (0.2-1.3) 06/19/23 01:53 AST 90 U/L (17-59) H 06/19/23 01:53 ALT 55 U/L (4-49) H 06/19/23 01:53 Alkaline Phosphatase 67 U/L (38-126) 06/19/23 01:53 Total Protein 6.2 g/dL (6.3-8.2) L 06/19/23 01:53 Albumin 3.8 g/dL (3.5-5.0) 06/19/23 01:53 Triglycerides 67.30 mg/dL (0.00-149.00) 06/19/23 01:53 Cholesterol 194.00 mg/dL (0.00-200.00) 06/19/23 01:53 LDL Cholesterol, Calc 122.3 mg/dL (0.0-131.0) 06/19/23 01:53 VLDL Cholesterol, Calc 13.46 mg/dL (5.00-40.00) 06/19/23 01:53 HDL Cholesterol 58.20 mg/dL (40.00-60.00) 06/19/23 01:53 Cholesterol/HDL Ratio 3.33 Ratio 06/19/23 01:53 TSH 0.317 mIU/L (0.465-4.680) L 06/19/23 01:53 Urine Opiates Screen Not Detected (NotDetected) 06/19/23 21:43 Ur Oxycodone Screen Not Detected (NotDetected) 06/19/23 21:43 Urine Methadone Screen Not Detected (NotDetected) 06/19/23 21:43 Ur Barbiturates Screen Not Detected (NotDetected) 06/19/23 21:43 U Tricyclic Antidepress Not Detected (NotDetected) 06/19/23 21:43 Ur Phencyclidine Scrn Not Detected (NotDetected) 06/19/23 21:43 Ur Amphetamines Screen Not Detected (NotDetected) 06/19/23 21:43 U Methamphetamines Scrn Not Detected (NotDetected) 06/19/23 21:43 U Benzodiazepines Scrn Not Detected (NotDetected) 06/19/23 21:43 Urine Cocaine Screen Detected (NotDetected) H 06/19/23 21:43 U Marijuana (THC) Screen Detected (NotDetected) H 06/19/23 21:43 Influenza Type A (PCR) Not Detected (Not Detectd) 06/20/23 12:00 Influenza Type B (PCR) Not Detected (Not Detectd) 06/20/23 12:00 RSV (PCR) Not Detected (Not Detectd) 06/20/23 12:00 SARS-CoV-2 (PCR) Not Detected (Not Detectd) 06/20/23 12:00 06/21/23 09:12 IDENTIFYING DATA: Patient is a 53-year-old male, who lives alone in an apartment. , has 2 children. Unemployed, collects social security. HPI: Patient presented to the hospital on 06/18. As per EPS note, presenting with PET via Mother due to making homicidal statements, manic behavior, delusions/paranoia, destroying family home. Cl restrained in ED and continues to present with manic behavior and erratic behavior. Cl's symptom report is relative to Bi-polar type I. Cl reports they are suffering from "scorpion poisoning" and experiencing tactile/visual hallucinations. Cl states " I have them under my skin and I have been removing them gradually. I have a whole jar of them at home." Cl has several superficial lacerations throughout their body as well as wounds wear they "tried to remove scorpions". Cl reports shaving all their body hair and that's why they have all the "cuts."Cl presents anxious, racing thoughts, pressured speech, flight of ideas, tangential, delusional/paranoid, grandiose, mood lability, anger outbursts, flight of ideas, and low frustration tolerance.Cl states " My Mom wanted me in, and I think I am having an allergic reation to Vitamin D, these bugs need to be evaluated by a Zoologist, I am just waiting on finding one." Cl reports using alcohol and cocaine occaisionally, to cope and " slow down when I am angry". Cl admits to "going to the streets" to look for substances. Cl reports walking 17 miles a day around town and does not look their age. Cl lives independently in their own apartment but reports they don't like staying there. pt brought in by PD. They were called to the home because the pt was destroying the family home. The two older parents were terrified. Per PD report the parents are coming into petition the patient. Pt placed in restraints at the time of arrival r/t aggressive behavior. pt is rambling and difficult to understand the course of the conversation." Upon todays assessment, patient presents as delusional, states he has a "skin conditions, that makes his blood boil, his throat swell, everything itch, and that it feels like there is bugs in my skin." He claims it is a bacteria in his skin. He states this is the only problem that brought him to the hospital. He states his mother called the veterans employment representative on him, and he says he has PTSD from the police, and that is why he acted out. He claims his anxiety is "active". Patient states he is only getting a few hours of sleep, which is a side effect from the bacteria. He states his appetite is good. Patient has fairly poor insight and judgment. He was requesting to go home at this time he does not believe that he needs antipsychotic medications and was requesting only antidepressants.Patient denies any suicidal or homicidal ideations intent or plan. At this time patient denies any auditory or visual hallucinations. Patient denies any flight of ideas racing thoughts and increased in goal directed behavior. Patients UDS was positive for marijuana and cocaine..States he uses a half of a gram of cocaine when he does it, and daily marijuana. Every day smoker. States he uses cocaine to "slow his brain down and make him think clearer" PAST PSYCHIATRIC HISTORY: Patient does take psychiatric medications., but he stopped taking the abilify and lithium. Patient last hospitalized on this unit in November of 2019. Patient is active with [facility], operated by [facility]. Patient is also been in substance abuse rehab several times at [facility]. Patient has history of suicide attempts in 2011 by means of overdose. PMH:As per ER note ALLERGIES: as per EMR CHEMICAL DEPENDENCY HISTORY: as per HPI FAMILY PSYCHIATRIC/SUBSTANCE USE HISTORY: Brothermajor depression/completed suicide SOCIAL HISTORY: Patient was born and raised in [place]. High school graduate. , has 2 children. 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 Has previously been in [facility]. MENTAL STATUS EXAM: General Appearance: Patient appears to be older than stated age, shaved head, is alert, directable, and attempts to cooperate. Patient appears to have poor hygiene and grooming. Multiple scabs over his head and arms. Behavior: Patient is seated without any agitated behavior. Fidgety. Speech: Patient's speech is fluent and nonpressured. Mood/Affect: Patient reports their mood is anxious, affect is congruent Suicidality/Homicidality: Patient denies having any homicidal ideation intent or plan. Denies any suicidal ideations intent or plan Perceptions: Patient denies any visual hallucinations and denies any auditory hallucinations Though content/process: There is evidence of delusional thought content and thought process hyperfocused on his "skin infection" flight of ideas Memory and concentration: AOX3, grossly intact for the purposes of this session. Can spell "WORLD" backwards Judgment and insight: poor STRENGTHS/WEAKNESSES: strength is that patient is resilient. Weakness is that patient has poor judgment and is impulsive, INTELLECT: [average] IMPRESSIONS: bipolar disorder, with psychotic features delusional parasitosis cocaine use disorder nicotine dependance cannabis use disorder PLAN: -Patient is admitted under involuntary status to [facility] for stabilization of psychiatric symptoms and safety. Patient has not signed adult voluntary form or medication consent and is placed in patient's chart. A second certification was completed and along with petition will be filed for court. -Medications : Zyprexa 5mg qhs mood stabilization/psychosis Prozac 20mg daily mood/anxiety -Ativan [and Haldol] PRN for agitation/aggression -Patient was counselled on substance abuse and desired to cut back on use -Patient was informed of the risks, benefits and side effects of the medication -Internal Medicine consult to perform medical evaluation and physical. -NRT - nicotine patch -SW on board for discharge planning. Encourage patient to participate in groups to work on coping skills. Will await deferral and court date. Will also offer patient rehab once he is more clear 06/21/23 12:10 06/21/23 12:34
[2023-06-21] MEDS: OLANZapine 2.5 MG TAB PO ONE (12:39)
[2023-06-21] MEDS: FLUoxetine HCL 20 MG CAP PO SCH (12:39)
[2023-06-21] MEDS: TRIAMCINOLONE ACET 0.1% OINTMENT 80 GM TUBE TOPICAL SCH (12:39)
[2023-06-21] MEDS: OLANZapine 5 MG TAB PO SCH (20:39)
[2023-06-21] MEDS: IBUPROFEN 600 MG TAB PO PRN (20:41)
[2023-06-21] MEDS: LORazepam 1 MG TAB PO PRN (21:13)
--- NOTE | 2023-06-22 11:35 | P.PN ---
Progress Note - Text Progress Note Date: 06/22/23 Interval History: Patient was seen in his room, and was directable and agreeable to speak with patti moreau at the bedside. Patient states he slept well last night, and that he is feeling a little better. Patient seems a little less delusional today, however, is still complaining of the feeling of his skin being itchy. He states he shaved off all the hair on his body a couple days ago, due to this. Patient claims to have a good appetite, and that he is trying to go to some groups. Patient asked technical document writer about his medications, technical document writer explained to patient the medications he got put on is noted to help him in the past. Patient agreeable. Patient also inquired about the court process, technical document writer explained to patient that the [place] attorney will come give the patient an opportunity to defer. Patient agreeable. At this time patient denies any suicidal or homical ideations, intent or plan. Patient denies any auditory, visual hallucinations and denies any paranoia or delusions. Patient denies any side effects from the medications and has been compliant with meds. MENTAL STATUS EXAM: General Appearance: Patient appears to be older than stated age, shaved head, is alert, directable, and attempts to cooperate. Patient appears to have improving hygiene and grooming. Multiple scabs over his head and arms. Behavior: Patient is seated without any agitated behavior. Fidgety. Improving mildly Speech: Patient's speech is fluent and nonpressured. Mood/Affect: Patient reports their mood is anxious, affect is congruent proving mildly Suicidality/Homicidality: Patient denies having any homicidal ideation intent or plan. Denies any suicidal ideations intent or plan Perceptions: Patient denies any visual hallucinations and denies any auditory hallucinations Though content/process: There is mild evidence of delusional thought content and thought process hyperfocused on his "skin infection", improving mildly Memory and concentration: AOX3, grossly intact for the purposes of this session. Judgment and insight: poor IMPRESSIONS: bipolar disorder, with psychotic features delusional parasitosis cocaine use disorder nicotine dependance cannabis use disorder PLAN: -Patient is admitted under involuntary status to [facility] for stabilization of psychiatric symptoms and safety. Patient has not signed adult voluntary form or medication consent and is placed in patient's chart. A second certification was completed and along with petition will be filed for court. -Medications : Zyprexa 5mg qhs mood stabilization/psychosis Prozac 20mg daily mood/anxiety add benedryl 25mg bid prn for allergies/itching -Ativan and Haldol PRN for agitation/aggression -NRT - nicotine patch -SW on board for discharge planning. Encourage patient to participate in groups to work on coping skills. Will await deferral and court date. Will also offer patient rehab once he is more clear
[2023-06-22] MEDS: diphenhydrAMINE 25 MG CAP PO PRN (12:37)
[2023-06-22] MEDS ORDERED: FLUTICASONE 50MCG/SPRAY NASAL 16GM EA NOSTRIL PRN (16:07)
[2023-06-23] MEDS ORDERED: ALBUTEROL INHALER 60 PUFF/8 GM INHALER (MHU) INHALATION PRN (08:07)
--- NOTE | 2023-06-23 08:11 | P.PN ---
Progress Note - Text Progress Note Date: 06/23/23 Interval History: Patient was seen in his room, and was directable and agreeable to speak with patti moreau at the bedside. Patient states his "skin infection" is getting better. Patient appears to be less focused on his symptoms today, and more goal orientated. Patient complains of some jaw pain, and said he would follow up with his primary care about it upon discharge. Community Leader spoke with patient about getting a sleep study upon discharge. Patient agreeable. Will provide information to patient at discharge. Patient also inquired about the court process, tag writer explained to patient that the back tender fourdrinier will come give the patient an opportunity to defer. He appears to have improving affect at this time, more visible on the unit and attempting to go to some groups. Patient agreeable. At this time patient denies any suicidal or homicidal ideations, intent or plan. Patient denies any auditory, visual hallucinations and denies any paranoia or delusions. Patient denies any side effects from the medications and has been compliant with meds. MENTAL STATUS EXAM: General Appearance: Patient appears to be older than stated age, shaved head, is alert, directable, and attempts to cooperate. Patient appears to have improving hygiene and grooming. Multiple scabs over his head and arms. improving Behavior: Patient is seated without any agitated behavior. Improving mildly Speech: Patient's speech is fluent and nonpressured. Mood/Affect: Patient reports their mood is anxious, affect is congruent proving mildly Suicidality/Homicidality: Patient denies having any homicidal ideation intent or plan. Denies any suicidal ideations intent or plan Perceptions: Patient denies any visual hallucinations and denies any auditory hallucinations Though content/process: There is no evidence of delusional thought content and thought process improving mildly Memory and concentration: AOX3, grossly intact for the purposes of this session. Judgment and insight: poor, mildly improving IMPRESSIONS: bipolar disorder, with psychotic features delusional parasitosis cocaine use disorder nicotine dependance cannabis use disorder PLAN: -Patient is admitted under involuntary status to [facility] for stabilization of psychiatric symptoms and safety. Patient has not signed adult voluntary form or medication consent and is placed in patient's chart. -Medications : Zyprexa 5mg qhs mood stabilization/psychosis Prozac 20mg daily mood/anxiety benedryl 25mg bid prn for allergies/itching -Ativan and Haldol PRN for agitation/aggression -NRT - nicotine patch -SW on board for discharge planning. Encourage patient to participate in groups to work on coping skills. Will await deferral and court date. Will also offer patient rehab once he is more clear. Likely discharge early next week if patient continues to improve.
[2023-06-23] MEDS: CHOLESTYRAMINE (WITH SUGAR) 4 GM PACKET PO SCH (16:55)
[2023-06-23 20:05] LABS: Appearance,Urine Clear (Clear); Bilirubin,Urine Negative (Negative); Blood,Urine Negative (Negative); Color,Urine Colorless; Glucose,Urine (UA) Negative (Negative); Ketones,Urine Negative (Negative); Leukocyte Esterase,Urine Negative (Negative); Nitrite,Urine Negative (Negative); Protein,Urine Negative (Negative); Specific Gravity,Urine 1.002 (1.001-1.035); Urobilinogen,Urine <2.0 mg/dL (<2.0)
--- NOTE | 2023-06-24 17:36 | P.PN ---
Progress Note - Text Progress Note Date: 06/24/23 Interval history: Patient was seen wandering the hallways and was directable and agreeable to speak with telegraphic typewriter mechanic. He reports the Zyprexa has been helpful, feels more calm, less mood lability. He has been attending groups and finds them helpful. He is bright and interactive. He still feels a little bit on edge. At this time patient denies any suicidal or homicidal ideation, intent or plan. Denies any auditory or visual hallucinations. Patient denies any side effects from the medications and has been compliant with meds. Mental status exam: General Appearance: Patient appears to be stated age, short buzzed haircut, showered, clean clothes Behavior: No agitated behavior. Patient is calm and directable. Speech: Patient's speech is fluent and non-pressured. Loud at times. Mood/Affect: Mood is improving mildly, affect is congruent and constricted. Suicidality/Homicidality: Patient denies having any suicidal or homicidal ideation intent or plan. Perceptions: Patient denies any auditory or visual hallucinations. Though content/process: There is no evidence of any delusional thought content and thought process is linear and goal-directed. Memory and concentration: AOX3, grossly intact for the purposes of this session Judgment and insight: Improving mildly Assessment/Plan: Continue with current diagnosis. Patient continues to meet criteria for inpatient psychiatric admission for symptom stabilization and safety. Increase Zyprexa from 5 mg QHS to 7.5 mg QHS for mood stabilization. Monitor for medication compliance and for any psychotropic medication side effects. Will continue to monitor ongoing response to treatment. Encouraged participation in milieu.
[2023-06-24] MEDS: OLANZapine 5 MG TAB PO SCH (20:15)
[2023-06-25 07:24] VITALS: RESP 18
[2023-06-26 07:20] VITALS: TEMP 98
--- NOTE | 2023-06-26 20:42 | P.PN ---
Progress Note - Text Progress Note Date: 06/25/23 Interval history: Patient was seen wandering the hallways and was directable and agreeable to speak with commercial underwriter. He reports improved mood, sleep and appetite. He has been social with peers, feels better today. He feels the increased dose of Zyprexa 7.5 mg QHS has been helpful for his mood; he appears more calm and mood more stable. At this time patient denies any suicidal or homicidal ideation, intent or plan. Denies any auditory or visual hallucinations. Patient denies any side effects from the medications and has been compliant with meds. Mental status exam: General Appearance: Patient appears to be stated age, short buzzed haircut, showered, clean clothes Behavior: No agitated behavior. Patient is calm and directable. Speech: Patient's speech is fluent and non-pressured. Loud at times. Mood/Affect: Mood is improving, affect is congruent and constricted. Suicidality/Homicidality: Patient denies having any suicidal or homicidal ideation intent or plan. Perceptions: Patient denies any auditory or visual hallucinations. Though content/process: There is no evidence of any delusional thought content and thought process is linear and goal-directed. Memory and concentration: AOX3, grossly intact for the purposes of this session Judgment and insight: Improving mildly Assessment/Plan: Continue with current diagnosis. Patient continues to meet criteria for inpatient psychiatric admission for symptom stabilization and safety. Continue medications at current doses. Monitor for medication compliance and for any psychotropic medication side effects. Will continue to monitor ongoing response to treatment. Encouraged participation in milieu.
--- NOTE | 2023-06-26 20:44 | P.PN ---
Progress Note - Text Progress Note Date: 06/26/23 Interval history: Patient was seen wandering the hallways and was directable and agreeable to speak with typewriter aligner. He reports good mood, sleep and appetite. He has been social with peers, appropriate with staff and patients on the unit. Thoughts are logical and future-oriented. At this time patient denies any suicidal or homicidal ideation, intent or plan. Denies any auditory or visual hallucinations. Patient denies any side effects from the medications and has been compliant with meds. He asked about his Vitamin D supplement which he is already getting as a weekly supplement. Mental status exam: General Appearance: Patient appears to be stated age, short buzzed haircut, showered, clean clothes Behavior: No agitated behavior. Patient is calm and directable. Speech: Patient's speech is fluent and non-pressured. Loud at times. Mood/Affect: Mood is improving, affect is congruent and constricted. Suicidality/Homicidality: Patient denies having any suicidal or homicidal ideation intent or plan. Perceptions: Patient denies any auditory or visual hallucinations. Though content/process: There is no evidence of any delusional thought content and thought process is linear and goal-directed. Memory and concentration: AOX3, grossly intact for the purposes of this session Judgment and insight: Improving mildly Assessment/Plan: Continue with current diagnosis. Patient continues to meet criteria for inpatient psychiatric admission for symptom stabilization and safety. Continue medications at current doses. Monitor for medication compliance and for any psychotropic medication side effects. Will continue to monitor ongoing response to treatment. Encouraged participation in milieu.
[2023-06-27 06:59] VITALS: BP 123/75; PULSE 98
[2023-06-27] MEDS: ERGOCALCIFEROL 1,250 MCG (50,000 IU) CAPSULE PO SCH (08:25)
--- NOTE | 2023-06-27 21:21 | P.DS ---
Providers Date of admission: 06/20/23 13:18 Expected date of discharge: 06/27/23 Attending physician: Kirill Guerra MD Consults: 06/20/23 13:27 Consult Physician Routine Consulting Provider: Melvin Almonte Reason/Comments: H&P and medical Do you want consulting provider notified?: Yes Primary care physician: Melvin Almonte [facility] Course: Admission HPI: Admission note was completed by Dr. Guerra "IDENTIFYING DATA: Patient is a 53-year-old male, who lives alone in an apartment. , has 2 children. Unemployed, collects social security. HPI: Patient presented to the hospital on 06/18. As per EPS note, presenting with PET via Mother due to making homicidal statements, manic behavior, delusions/paranoia, destroying family home. Cl restrained in ED and continues to present with manic behavior and erratic behavior. Cl's symptom report is relative to Bi-polar type I. Cl reports they are suffering from "scorpion poisoning" and experiencing tactile/visual hallucinations. Cl states " I have them under my skin and I have been removing them gradually. I have a whole jar of them at home." Cl has several superficial lacerations throughout their body as well as wounds wear they "tried to remove scorpions". Cl reports shaving all their body hair and that's why they have all the "cuts."Cl presents anxious, racing thoughts, pressured speech, flight of ideas, tangential, delusional/paranoid, grandiose, mood lability, anger outbursts, flight of ideas, and low frustration tolerance.Cl states " My Mom wanted me in, and I think I am having an allergic reation to Vitamin D, these bugs need to be evaluated by a Zoologist, I am just waiting on finding one." Cl reports using alcohol and cocaine occaisionally, to cope and " slow down when I am angry". Cl admits to "going to the streets" to look for substances. Cl reports walking 17 miles a day around town and does not look their age. Cl lives independently in their own apartment but reports they don't like staying there. pt brought in by PD. They were called to the home because the pt was destroying the family home. The two older parents were terrified. Per PD report the parents are coming into petition the patient. Pt placed in restraints at the time of arrival r/t aggressive behavior. pt is rambling and difficult to understand the course of the conversation." Upon todays assessment, patient presents as delusional, states he has a "skin conditions, that makes his blood boil, his throat swell, everything itch, and that it feels like there is bugs in my skin." He claims it is a bacter ia in his skin. He states this is the only problem that brought him to the hospital. He states his mother called the associate automation engineer on him, and he says he has PTSD from the police, and that is why he acted out. He claims his anxiety is "active". Patient states he is only getting a few hours of sleep, which is a side effect from the bacteria. He states his appetite is good. Patient has fairly poor insight and judgment. He was requesting to go home at this time he does not believe that he needs antipsychotic medications and was requesting only antidepressants.Patient denies any suicidal or homicidal ideations intent or plan. At this time patient denies any auditory or visual hallucinations. Patient denies any flight of ideas racing thoughts and increased in goal directed behavior. Patients UDS was positive for marijuana and cocaine..States he uses a half of a gram of cocaine when he does it, and daily marijuana. Every day smoker. States he uses cocaine to "slow his brain down and make him think clearer" PAST PSYCHIATRIC HISTORY: Patient does take psychiatric medications., but he stopped taking the abilify and lithium. Patient last hospitalized on this unit in November of 2019. Patient is active with [facility]. Patient is also been in substance abuse rehab several times at [facility]. Patient has history of suicide attempts in 2012 by means of overdose. PMH:As per ER note ALLERGIES: as per EMR CHEMICAL DEPENDENCY HISTORY: as per HPI FAMILY PSYCHIATRIC/SUBSTANCE USE HISTORY: Brothermajor depression/completed suicide SOCIAL HISTORY: Patient was born and raised in [place]. High school graduate. , has 2 children. 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 Has previously been [facility] and assisted. MENTAL STATUS EXAM: General Appearance: Patient appears to be older than stated age, shaved head, is alert, directable, and attempts to cooperate. Patient appears to have poor hygiene and grooming. Multiple scabs over his head and arms. Behavior: Patient is seated without any agitated behavior. Fidgety. Speech: Patient's speech is fluent and nonpressured. Mood/Affect: Patient reports their mood is anxious, affect is congruent Suicidality/Homicidality: Patient denies having any homicidal ideation intent or plan. Denies any suicidal ideations intent or plan Perceptions: Patient denies any visual hallucinations and denies any auditory hallucinations Though content/process: There is evidence of delusional thought content and thought process hyperfocused on his "skin infection" flight of ideas Memory and concentration: AOX3, grossly intact for the purposes of this session. Can spell "WORLD" backwards Judgment and insight: poor STRENGTHS/WEAKNESSES: strength is that patient is resilient. Weakness is that patient has poor judgment and is impulsive, INTELLECT: [average] IMPRESSIONS: bipolar disorder, with psychotic features delusional parasitosis cocaine use disorder nicotine dependance cannabis use disorder PLAN: -Patient is admitted under involuntary status to [facility] for stabilization of psychiatric symptoms and safety. Patient has not signed adult voluntary form or medication consent and is placed in patient's chart. A second certification was completed and along with petition will be filed for court. -Medications : Zyprexa 5mg qhs mood stabilization/psychosis Prozac 20mg daily mood/anxiety -Ativan [and Haldol] PRN for agitation/aggression -Patient was counselled on substance abuse and desired to cut back on use -Patient was informed of the risks, benefits and side effects of the medication -Internal Medicine consult to perform medical evaluation and physical. -NRT - nicotine patch -SW on board for discharge planning. Encourage patient to participate in groups to work on coping skills. Will await deferral and court date. Will also offer patient rehab once he is more clear" Hospital course: Upon admission to the unit patient admitted involuntarily on a petition and certificate and a second certificate was completed and faxed with the courts. Patient ended up signing a deferral with the deputy attorney general and agreeing to treatment. Patient got along well with other patients on the unit and followed unit protocol. Patient was compliant with the medications and denied any side effects throughout hospital course. Patient was started on Zyprexa which was titrated to 7.5 mg QHS for psychosis and Prozac 20 mg daily for depression/anxiety. Patient spoke of his stressors and engaged in therapy both group and individual. Patient was also seen by medical team for history and physical exam and was treated for folliculitis. Throughout the course of the hospitalization patient gradually improved with regards to mood, anxiety, sleep and became more future oriented with improved insight and judgment. On the day of discharge patient denied any suicidal or homicidal ideation, intent or plan denied any auditory or visual hallucinations. Patient endorsed wanting to live for his health and family. The patient denied any access to guns or weapons. Patient denied any paranoia and did not endorse any delusions on day of discharge. Patient does have a significant history of substance abuse and was counseled on abstaining from all substances including alcohol and marijuana. Patient elected to do outpatient substance use treatment program. Patient was also counseled on the medications and need for regular compliance and was encouraged to follow-up with their outpatient appointment for mental health and also for primary care. Prior to discharge a family meeting will be arranged by oncology social worker to answer any questions and ensure safety upon discharge. Mental status exam: General Appearance: Patient appears to be stated age, short buzzed haircut, showered, clean clothes Behavior: No agitated behavior. Patient is calm and directable. Speech: Patient's speech is fluent and non-pressured. Loud at times. Mood/Affect: Mood is improving, affect is congruent and constricted. Suicidality/Homicidality: Patient denies having any suicidal or homicidal ideation intent or plan. Perceptions: Patient denies any auditory or visual hallucinations. Though content/process: There is no evidence of any delusional thought content and thought process is linear and goal-directed. Memory and concentration: AOX3, grossly intact for the purposes of this session Judgment and insight: Improved with guarded prognosis Impression: Bipolar disorder, with psychotic features Delusional parasitosis Cocaine use disorder Nicotine dependance Cannabis use disorder Plan: -Continue with discharge today as patient has improved and stabilized psychiatrically and is not currently an imminent threat to [himself] and/or others. Patient will remain at chronically elevated risk for harm to self and/or others due to his impulsivity and polysubstance abuse. -Continue medications: Zyprexa 7.5 mg QHS for psychosis and Prozac 20 mg daily for depression/anxiety. -Patient was counseled on the need for medication compliance and appropriate follow-up at mental health and also primary care for medical issues. Patient verbalized understanding and agreed. -Social work to arrange for and conduct family meeting to ensure safety upon discharge and answer any questions/concerns. Social work also to arrange for patients follow up appointments for psychiatric care along with follow up with primary care provider. -Patient counseled on abstaining from recreational drugs and marijuana and alcohol. Was informed/educated on the adverse effects on their physical and mental health. Patient verbally agreed and understood. -Patient was instructed to return to the hospital or seek immediate medical care if their psychiatric or medical symptoms do worsen or reoccur. Vital Signs (72 hours) 06/25/23 06/26/23 06/27/23 06:56 06:00 06:50 Temperature 98.0 F Pulse Rate [ 78 98 Bilateral] Pulse Rate [ 77 Pulse Oximetery ] Respiratory 18 18 Rate Blood Pressure 109/65 116/72 123/75 [Left Arm] O2 Sat by Pulse 98 Oximetry Laboratory Results WBC 9.8 k/uL (3.8-10.6) 06/19/23 01:53 RBC 3.78 m/uL (4.30-5.90) L 06/19/23 01:53 Hgb 12.0 gm/dL (13.0-17.5) L 06/19/23 01:53 Hct 35.5 % (39.0-53.0) L 06/19/23 01:53 MCV 93.9 fL (80.0-100.0) 06/19/23 01:53 MCH 31.8 pg (25.0-35.0) 06/19/23 01:53 MCHC 33.9 g/dL (31.0-37.0) 06/19/23 01:53 RDW 12.4 % (11.5-15.5) 06/19/23 01:53 Plt Count 219 k/uL (150-450) 06/19/23 01:53 MPV 7.6 06/19/23 01:53 Neutrophils % 81 % 06/19/23 01:53 Lymphocytes % 12 % 06/19/23 01:53 Monocytes % 5 % 06/19/23 01:53 Eosinophils % 0 % 06/19/23 01:53 Basophils % 0 % 06/19/23 01:53 Neutrophils # 8.0 k/uL (1.3-7.7) H 06/19/23 01:53 Lymphocytes # 1.2 k/uL (1.0-4.8) 06/19/23 01:53 Monocytes # 0.5 k/uL (0-1.0) 06/19/23 01:53 Eosinophils # 0.0 k/uL (0-0.7) 06/19/23 01:53 Basophils # 0.0 k/uL (0-0.2) 06/19/23 01:53 Sodium 142 mmol/L (137-145) 06/19/23 01:53 Potassium 3.6 mmol/L (3.5-5.1) 06/19/23 01:53 Chloride 108 mmol/L (98-107) H 06/19/23 01:53 Carbon Dioxide 30 mmol/L (22-30) 06/19/23 01:53 Anion Gap 4 mmol/L 06/19/23 01:53 BUN 25 mg/dL (9-20) H 06/19/23 01:53 Creatinine 1.12 mg/dL (0.66-1.25) 06/19/23 01:53 Est GFR (CKD-EPI)AfAm 87 (>60 ml/min/1.73 sqM) 06/19/23 01:53 Est GFR (CKD-EPI)NonAf 75 (>60 ml/min/1.73 sqM) 06/19/23 01:53 Glucose 97 mg/dL (74-99) 06/19/23 01:[address] Glu mg/dL 120 mg/dL 06/19/23 01:43 Hemoglobin A1c 5.8 % (<=6.0) 06/19/23 01:43 Calcium 8.9 mg/dL (8.4-10.2) 06/19/23 01:53 Total Bilirubin 1.0 mg/dL (0.2-1.3) 06/19/23 01:53 AST 90 U/L (17-59) H 06/19/23 01:53 ALT 55 U/L (4-49) H 06/19/23 01:53 Alkaline Phosphatase 67 U/L (38-126) 06/19/23 01:53 Total Protein 6.2 g/dL (6.3-8.2) L 06/19/23 01:53 Albumin 3.8 g/dL (3.5-5.0) 06/19/23 01:53 Triglycerides 67.30 mg/dL (0.00-149.00) 06/19/23 01:53 Cholesterol 194.00 mg/dL (0.00-200.00) 06/19/23 01:53 LDL Cholesterol, Calc 122.3 mg/dL (0.0-131.0) 06/19/23 01:53 VLDL Cholesterol, Calc 13.46 mg/dL (5.00-40.00) 06/19/23 01:53 HDL Cholesterol 58.20 mg/dL (40.00-60.00) 06/19/23 01:53 Cholesterol/HDL Ratio 3.33 Ratio 06/19/23 01:53 TSH 0.317 mIU/L (0.465-4.680) L 06/19/23 01:53 Urine Color Colorless 06/23/23 19:00 Urine Appearance Clear (Clear) 06/23/23 19:00 Urine pH 7.0 (5.0-8.0) 06/23/23 19:00 Ur Specific [place] 1.002 (1.001-1.035) 06/23/23 19:00 Urine Protein Negative (Negative) 06/23/23 19:00 Urine Glucose (UA) Negative (Negative) 06/23/23 19:00 Urine Ketones Negative (Negative) 06/23/23 19:00 Urine Blood Negative (Negative) 06/23/23 19:00 Urine Nitrite Negative (Negative) 06/23/23 19:00 Urine Bilirubin Negative (Negative) 06/23/23 19:00 Urine Urobilinogen <2.0 mg/dL (<2.0) 06/23/23 19:00 Ur Leukocyte Esterase Negative (Negative) 06/23/23 19:00 Urine Opiates Screen Not Detected (NotDetected) 06/19/23 21:43 Ur Oxycodone Screen Not Detected (NotDetected) 06/19/23 21:43 Urine Methadone Screen Not Detected (NotDetected) 06/19/23 21:43 Ur Barbiturates Screen Not Detected (NotDetected) 06/19/23 21:43 U Tricyclic Antidepress Not Detected (NotDetected) 06/19/23 21:43 Ur Phencyclidine Scrn Not Detected (NotDetected) 06/19/23 21:43 Ur Amphetamines Screen Not Detected (NotDetected) 06/19/23 21:43 U Methamphetamines Scrn Not Detected (NotDetected) 06/19/23 21:43 U Benzodiazepines Scrn Not Detected (NotDetected) 06/19/23 21:43 Urine Cocaine Screen Detected (NotDetected) H 06/19/23 21:43 U Marijuana (THC) Screen Detected (NotDetected) H 06/19/23 21:43 Influenza Type A (PCR) Not Detected (Not Detectd) 06/20/23 12:00 Influenza Type B (PCR) Not Detected (Not Detectd) 06/20/23 12:00 RSV (PCR) Not Detected (Not Detectd) 06/20/23 12:00 SARS-CoV-2 (PCR) Not Detected (Not Detectd) 06/20/23 12:00 Patient Condition at Discharge: Good Plan - Discharge Summary Discharge Rx Participant: No New Discharge Prescriptions: New Fluticasone Nasal Inez [Flonase Nasal Inez] 2 spray EA NOSTRIL BID PRN 7 Days #1 unit PRN Reason: Allergy Symptoms Cholestyramine (with Sugar) [Questran Packet] 4 gm PO BID@0900,1700 7 Days #14 packet Loratadine [Claritin] 10 mg PO DAILY 30 Days #30 tab FLUoxetine HCL [PROzac] 20 mg PO DAILY 30 Days #30 cap OLANZapine [ZyPREXA] 7.5 mg PO HS 30 Days #30 tab Continue Ergocalciferol [Vitamin D2 (1250 Mcg = 98469 Iu)] 1,250 mcg PO Q7D Omeprazole [PriLOSEC] 40 mg PO DAILY Triamcinolone 0.1% Ointment [Kenalog 0.1% Ointment] 1 applic TOPICAL BID 7 Days #1 each Discontinued fluvoxaMINE MALEATE [Luvox CR] 150 mg PO DAILY Cetirizine HCl 10 mg PO DAILY Discharge Medication List Ergocalciferol [Vitamin D2 (1250 Mcg = 79144 Iu)] 1,250 mcg PO Q7D 06/20/23 [History] Omeprazole [PriLOSEC] 40 mg PO DAILY 06/20/23 [History] Cholestyramine (with Sugar) [Questran Packet] 4 gm PO BID@0900,1700 7 Days #14 packet 06/27/23 [Rx] FLUoxetine HCL [PROzac] 20 mg PO DAILY 30 Days #30 cap 06/27/23 [Rx] Fluticasone Nasal Inez [Flonase Nasal Inez] 2 spray EA NOSTRIL BID PRN 7 Days #1 unit 06/27/23 [Rx] Loratadine [Claritin] 10 mg PO DAILY 30 Days #30 tab 06/27/23 [Rx] OLANZapine [ZyPREXA] 7.5 mg PO HS 30 Days #30 tab 06/27/23 [Rx] Triamcinolone 0.1% Ointment [Kenalog 0.1% Ointment] 1 applic TOPICAL BID 7 Days #1 each 06/27/23 [Rx] Follow up Appointment(s)/Referral(s): [facility] [Outside] - [address] [facility] [facility] [Outside] - 06/28/23 1:00 pm (06/28/2023 1:00PM - 2:00PM DELROY MOODY 07/05/2023 8:00AM - 8:30AM [facility]) Melvin Almonte MD [Primary Care Provider] - 1-2 days Patient Instructions/Handouts: How to Stop Smoking (DC), How to Stop Smoking (GEN), Cocaine Abuse (ED), Cocaine Abuse (DC), Bipolar Disorder (DC) Activity/Diet/Wound Care/Special Instructions: Avoid the use of street drugs and alcohol. Take all medications as prescribed. When you are in need of refills on your medications, please contact your medical provider and/or outpatient psychiatrist/provider to have this done. Please go to your scheduled outpatient appointment for aftercare treatment. If symptoms return or become worse, call the crisis line at and/or go to the nearest emergency room for evaluation. National Suicide Hotline 387. Discharge Disposition: HOME SELF-CARE
== END 2023-06-27 13:58 | disposition home or self-care (01) | DRG 753 ==
LOC: EC 23:22 → 3MHU 06-20 13:18
PROVIDERS: ADMIT Psychiatry & Neurology Psychiatry; ATTEND Psychiatry & Neurology Psychiatry
DX: F31.5 Bipolar disorder, current episode depressed, severe, with psychotic features (principal); D50.9 Iron deficiency anemia, unspecified; N18.2 Chronic kidney disease, stage 2 (mild); D63.1 Anemia in chronic kidney disease; K21.9 Gastro-esophageal reflux disease without esophagitis; F43.10 Post-traumatic stress disorder, unspecified; Z11.52 Encounter for screening for COVID-19; F12.10 Cannabis abuse, uncomplicated; F14.10 Cocaine abuse, uncomplicated; F17.200 Nicotine dependence, unspecified, uncomplicated; L73.9 Follicular disorder, unspecified; L02.92 Furuncle, unspecified; Z78.1 Physical restraint status; Z79.899 Other long term (current) drug therapy; Z81.8 Family history of other mental and behavioral disorders; Z91.51 Personal history of suicidal behavior; Z56.0 Unemployment, unspecified; Z65.3 Problems related to other legal circumstances; Z60.2 Problems related to living alone; Z71.6 Tobacco abuse counseling; Z71.51 Drug abuse counseling and surveillance of drug abuser; Z71.89 Other specified counseling; R45.1 Restlessness and agitation; R94.5 Abnormal results of liver function studies; Z63.5 Disruption of family by separation and divorce; R21 Rash and other nonspecific skin eruption
CPT/HCPCS: 36415; 80053; 80061; 80306; 81003; 83036; 84443; 85025; 87636; 96360; 96361; 96372; 99291